=== PATIENT | female | born 1940 | race Caucasian/White ===

== ENCOUNTER 2016-12-15 09:40 | Emergency (ER) | payer MEDICARE ==
[2016-12-15 09:58] VITALS: BP 147/62
--- NOTE | 2016-12-15 10:50 | EDM.PDOC ---
ED HPI GENERAL MEDICAL PROBLEM - General Chief Complaint: Gastrointestinal Problem Stated Complaint: INFLAMMATION OF COLON Time Seen by Provider: 12/15/16 10:11 Source of Information: Reports: Patient History Limitations: Reports: No Limitations - History of Present Illness INITIAL COMMENTS - FREE TEXT/NARRATIVE: Kallie presents today with complaints of watery diarrhea for 3 weeks without improvement. She states she telephoned her primary Dr. Mckeon and was instructed to report to ER for evaluation. Kallie reports watery diarrhea, minimal cramp-like abdominal pain daily. She reports 3 or more stools a day. She denies fever, chills, nausea, vomiting or pain with urination. Onset Date: 11/23/16 Duration: Week(s): Quality: Reports: Other (Cramping pain prior to and during diarrhea stools. ) Severity: Moderate Improves with: Reports: None Worsens with: Reports: Eating Other Treatments DEMONSTRATOR SALES: She has tried to eat more fiber in her diet, statesit makes it worse Feet Pain Score (Numeric/FACES): 2 - Related Data Allergies Allergy/AdvReac Type Severity Reaction Status Date / Time polyethylene glycol 3350 Allergy Diarrhea Verified 12/15/16 09:58 [From Miralax] Sulfa (Sulfonamide Allergy Blisters Verified 12/15/16 09:58 Antibiotics) Home Meds: Home Meds Ascorbic Acid [Vitamin C] 1,000 mg PO DAILY 03/13/13 [History] Atenolol [Tenormin] 50 mg PO DAILY 03/13/13 [History] Cholecalciferol (Vitamin D3) [Vitamin D3] 5,000 unit PO DAILY 03/13/13 [History] Levothyroxine [Sythroid] 100 mcg PO DAILY 03/13/13 [History] Selenium 200 mcg PO DAILY 03/13/13 [History] Latanoprost [Latanoprost] 1 drop OP BEDTIME 12/15/16 [History] Lutein/Minerals/Vit A,C & E [Ocuvite] 1 tab PO DAILY 12/15/16 [History] Red Yeast Rice 600 mg PO DAILY 12/15/16 [History] Timolol [Betimol 0.5% Ophth Soln] 1 drop OP DAILY 12/15/16 [History] Past Medical History HEENT History: Reports: Cataract, Sinusitis Cardiovascular History: Reports: Arrhythmia, High Cholesterol Gastrointestinal History: Reports: Chronic Diarrhea, Colon Polyp, Inflammatory Bowel Disease, Irritable Bowel Syndrome Genitourinary History: Reports: UTI, Recurrent [employer]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: Musculoskeletal History: Reports: Arthritis, Fracture, Neck Pain, Chronic, Osteoarthritis Endocrine/Metabolic History: Reports: Hypothyroidism, Obesity/BMI 30+ - Infectious Disease History Infectious Disease History: Reports: Chicken Pox, Measles, Mumps, Shingles - Past Surgical History HEENT Surgical History: Reports: Cataract Surgery GI Surgical History: Reports: Colonoscopy Female Surgical History: Reports: Hysterectomy, Salpingo-Oophorectomy Musculoskeletal Surgical History: Reports: Arthroscopic Knee Social & Family History - Tobacco Use Smoking Status *Q: Never Smoker Second Hand Smoke Exposure: No - Caffeine Use Caffeine Use: Reports: Coffee - Alcohol Use Days Per Week of Alcohol Use: 0 - Recreational Drug Use Recreational Drug Use: No ED ROS GENERAL - Review of Systems Review Of Systems: See Below Constitutional: Reports: Weight Gain. Denies: Fever, Chills, Malaise, Weakness HEENT: Reports: No Symptoms Respiratory: Denies: Shortness of Breath, Wheezing, Cough, Sputum, Hemoptysis Cardiovascular: Denies: Chest Pain, Blood Pressure Problem, Dyspnea on Exertion , Edema, Lightheadedness, Palpitations, Syncope Endocrine: Reports: No Symptoms GI/Abdominal: Reports: Abdominal Pain, Diarrhea, Distension, Flatus, Nausea, Stool Incontinence. Denies: Black Stool, Bloody Stool, Constipation, Decreased Appetite, Difficulty Swallowing, Hematemesis, Hematochezia, Mucous in Stool, Vomiting : Denies: Discharge, Dysuria, Flank Pain, Frequency, Hematuria, Incontinence, Pain, Urgency, Urinary Retention Musculoskeletal: Reports: No Symptoms Skin: Reports: Dryness. Denies: Cyanosis, Jaundice, Pallor, Diaphoresis, Bruising, Pruritis, Rash, Erythema, Wound, Lesions Neurological: Denies: Confusion, Dizziness, Headache, Numbness, Syncope, Tingling, Weakness Psychiatric: Reports: No Symptoms Hematologic/Lymphatic: Reports: No Symptoms Immunologic: Reports: No Symptoms ED EXAM, GI/ABD - Physical Exam Exam: See Below Text/Narrative:: Kallie is an alert, oriented and pleasant 76 year old female presenting with complaints of watery diarrhea for 3 weeks, abdominal cramping immediately prior to and during defecation with increase of fiber intake. She reports history of irritable bowel and strong family history of colon cancer. Exam Limited By: No Limitations General Appearance: Alert, WD/WN, No Apparent Distress Eyes: Bilateral: Normal Appearance, EOMI Ears: Normal External Exam, Normal Canal, Hearing Grossly Normal, Normal TMs Nose: Normal Inspection, Normal Mucosa, No Blood Throat/Mouth: Normal Inspection, Normal Lips, Normal Teeth, Normal Gums, Normal Oropharynx, Normal Voice, No Airway Compromise Head: Atraumatic, Normocephalic Neck: Normal Inspection, Supple, Non-Tender, Full Range of Motion Respiratory/Chest: No Respiratory Distress, Lungs Clear, Normal Breath Sounds, No Accessory Muscle Use, Chest Non-Tender Cardiovascular: Normal Peripheral Pulses, Regular Rate, Rhythm, No Edema, No Gallop, No Murmur, No Rub GI/Abdominal Exam: Soft, No Organomegaly, Distended, Tender, Abnormal Bowel Sounds, Other (hyperactive bowel sounds. ). No: Guarding, Rigid, Rebound, Mass Rectal (Female) Exam: Normal Exam, Normal Rectal Tone, Heme - Stool, Hemorrhoids. No: Black Stool, Bloody Stool Back Exam: Normal Inspection, Full Range of Motion. No: CVA Tenderness (R), CVA Tenderness (L) Extremities: Normal Inspection, Normal Range of Motion, Non-Tender, No Pedal Edema, Normal Capillary Refill Neurological: Alert, Oriented, CN II-XII Intact, Normal Cognition, No Motor/ Sensory Deficits Psychiatric: Normal Affect, Normal Mood Skin Exam: Warm, Dry, Intact, Normal Color, No Rash Lymphatic: No Adenopathy Course - Vital Signs Last Recorded V/S: Last Vital Signs Temp 36.1 C 12/15/16 09:55 Pulse 67 12/15/16 09:55 Resp 18 12/15/16 09:55 BP 147/62 H 12/15/16 09:55 Pulse Ox 95 12/15/16 09:55 - Orders/Labs/Meds Orders: Active Orders 24 hr Category Date Time Status Abdomen Pelvis w Cont [CT] Stat Exams 12/15/16 11:15 Taken Labs: Laboratory Tests 12/15/16 12/15/16 12/15/16 Range/Units 10:53 10:53 10:53 WBC 5.3 (4.5-11.0) K/uL RBC 4.48 (3.30-5.50) M/uL Hgb 13.4 (12.0-15.0) g/dL Hct 38.7 (36.0-48.0) % MCV 86 (80-98) fL MCH 30 (27-31) pg MCHC 35 (32-36) % Plt Count 172 (150-400) K/uL Neut % (Auto) 59 (36-66) % Lymph % (Auto) 30 (24-44) % [place] % (Auto) 9 H (2-6) % Eos % (Auto) 2 (2-4) % Baso % (Auto) 1 (0-1) % ESR 17 (0-25) mm/hr Sodium 140 (140-148) mmol/L Potassium 3.9 (3.6-5.2) mmol/L Chloride 107 (100-108) mmol/L Carbon Dioxide 27 (21-32) mmol/L Anion Gap 6.0 (5.0-14.0) mmol/L BUN 14 (7-18) mg/dL Creatinine 0.9 (0.6-1.0) mg/dL Est Cr Clr Drug Dosing 50.02 mL/min Estimated GFR (MDRD) > 60 (>60) Glucose 99 (74-106) mg/dL Calcium 8.5 (8.5-10.1) mg/dL Magnesium 1.8 (1.8-2.4) mg/dL Total Bilirubin 0.5 (0.2-1.0) mg/dL AST 16 (15-37) U/L ALT 19 (12-78) U/L Alkaline Phosphatase 54 (46-116) U/L C-Reactive Protein (0.0-0.3) mg/dL Total Protein 7.1 (6.4-8.2) g/dL Albumin 3.3 L (3.4-5.0) g/dL Globulin 3.8 H (2.3-3.5) g/dL Albumin/Globulin Ratio 0.9 L (1.2-2.2) 12/15/16 Range/Units 10:53 WBC (4.5-11.0) K/uL RBC (3.30-5.50) M/uL Hgb (12.0-15.0) g/dL Hct (36.0-48.0) % MCV (80-98) fL MCH (27-31) pg MCHC (32-36) % Plt Count (150-400) K/uL Neut % (Auto) (36-66) % Lymph % (Auto) (24-44) % [place] % (Auto) (2-6) % Eos % (Auto) (2-4) % Baso % (Auto) (0-1) % ESR (0-25) mm/hr Sodium (140-148) mmol/L Potassium (3.6-5.2) mmol/L Chloride (100-108) mmol/L Carbon Dioxide (21-32) mmol/L Anion Gap (5.0-14.0) mmol/L BUN (7-18) mg/dL Creatinine (0.6-1.0) mg/dL Est Cr Clr Drug Dosing mL/min Estimated GFR (MDRD) (>60) Glucose (74-106) mg/dL Calcium (8.5-10.1) mg/dL Magnesium (1.8-2.4) mg/dL Total Bilirubin (0.2-1.0) mg/dL AST (15-37) U/L ALT (12-78) U/L Alkaline Phosphatase (46-116) U/L C-Reactive Protein 0.20 (0.0-0.3) mg/dL Total Protein (6.4-8.2) g/dL Albumin (3.4-5.0) g/dL Globulin (2.3-3.5) g/dL Albumin/Globulin Ratio (1.2-2.2) Occult stool negative Lab work reviewed Meds: Medications Discontinued Medications Generic Name Dose Route Start Last Admin Trade Name Freq PRN Reason Stop Dose Admin Sodium Chloride 81 mls @ 4.1 mls/sec 12/15/16 11:20 12/15/16 11:33 Normal Saline IV 12/15/16 11:21 4.1 mls/sec ASDIRECTED STA Administration Iopamidol 136 ml 12/15/16 11:20 12/15/16 11:32 Isovue-300 (61%) IV 12/15/16 11:21 150 ml . DIRECTED STA Administration - Radiology Interpretation CT Results Date: 12/15/16 (Colon is decompressed from the hepatic flexure distally. There is suggestion of focal transition point to decompressed distal colon with subtle shouldering at the hepatic flexure. While this may be transient, neoplasm or stricture could result in this appearance. Recommend colonoscopy if not recently performed. ) - Re-Assessments/Exams Free Text/Narrative Re-Assessment/Exam: 12/15/16 12:35 Dr. Singh notified of CT findings. Patient will be scheduled to complete colonoscopy as soon as possible this week through outpatient. Patient allergic to miralax. Patient notified of lab work, CT results. She is in agreement with plan. Free Text/Narrative Re-Assessment/Exam: 12/15/16 12:43 Colonoscopy scheduled with outpatient surgery. Patient report allergy to miralax. Given instruction to use magnesium citrate Bowel prep instructions for colonoscopy: Buy: 1. 3 bottles of magnesium citrate (clear or green only) 2. 3 Dulcolax pills 3. 1 Water based fleets enema The day before your colonoscopy: 1. Drink one bottle of magnesium citrate at 1:00pm, 2:00pm and 6:00pm 2. Take the 3 dulcolax pills after finishing the last bottle of magnesium citrate. Drink 8 oz of water every 2 hours you are awake until midnight. If you are not cleaned out after you finish the above, give yourself a water- based fleets enema. Departure - Departure Time of Disposition: 12:37 Disposition: Home, Self-Care 01 Condition: Fair Clinical Impression: Abnormal CT of the abdomen, Diarrhea - Discharge Information Instructions: Low-Fiber Diet, Diarrhea, Adult, [id number] Referrals: Reynold Mckeon MD [Primary Care Provider] - Forms: ED Department Discharge Additional Instructions: Diarrhea Abnormal CT scan of abdomen and pelvis with recommended colonoscopy. Report to outpatient therapy after they have contacted you for a colonoscopy. Dr. Singh has ordered a diet as tolerated for you. Eat soft foods without a lot of fiber, eat no added fiber. Keep yourself hydrated by drinking plenty of water. Return at any time for worsening, fever, chills, abdominal pain or concerns. Bowel prep instructions for colonoscopy: Buy: 1. 3 bottles of magnesium citrate (clear or green only) 2. 3 Dulcolax pills 3. 1 Water based fleets enema The day before your colonoscopy: 1. Drink one bottle of magnesium citrate at 1:00pm, 2:00pm and 6:00pm 2. Take the 3 dulcolax pills after finishing the last bottle of magnesium citrate. Drink 8 oz of water every 2 hours you are awake until midnight. If you are not cleaned out after you finish the above, give yourself a water- based fleets enema. Colonoscopy on Saturday12/17/16. Please arrive at 7:00 am at [facility]. - My Orders Last 24 Hours: My Active Orders 12/15/16 11:15 Abdomen Pelvis w Cont [CT] Stat - Assessment/Plan Last 24 Hours: My Active Orders 12/15/16 11:15 Abdomen Pelvis w Cont [CT] Stat Assessment:: Abnormal CT of abdomen Diarrhea Possible distal colon stricture, transient decompression or neoplasm. Plan: Diarrhea Abnormal CT scan of abdomen and pelvis with recommended colonoscopy. Report to outpatient therapy as directed for a colonoscopy. Follow instructions for colonoscopy prep and procedure. Dr. Singh has ordered a diet as tolerated. Eat soft foods without a lot of fiber, eat no added fiber. Patient advised to keep hydrated by drinking plenty of water. She is advised to return at any time for worsening, fever, chills, abdominal pain or concerns.
[2016-12-15] MEDS ORDERED: Iopamidol 612 MG/ML 150 ML Bottle IV STA (11:20)
== END 2016-12-15 13:11 | disposition home or self-care (01) ==
LOC: JP.ED 09:40
DX: R19.7 Diarrhea, unspecified (principal); R93.5 Abnormal findings on diagnostic imaging of other abdominal regions, including retroperitoneum; E03.9 Hypothyroidism, unspecified; E66.9 Obesity, unspecified; E78.00 Pure hypercholesterolemia, unspecified; Z88.2 Allergy status to sulfonamides; Z88.8 Allergy status to other drugs, medicaments and biological substances; Z79.899 Other long term (current) drug therapy; Z87.440 Personal history of urinary (tract) infections; Z98.49 Cataract extraction status, unspecified eye; Z90.710 Acquired absence of both cervix and uterus
CPT/HCPCS: 36415; 74177; 80053; 82272; 83735; 85025; 85651; 86140; 99284; J7030

== ENCOUNTER 2016-12-17 06:52 | Day surgery (SDC) | payer MEDICARE ==
[2016-12-17] MEDS ORDERED: fentaNYL 100 MCG/2 ML SDV ONE (07:05)
[2016-12-17] MEDS ORDERED: Propofol 200 MG/20 ML SDV ONE ×2 (07:05→08:07)
[2016-12-17] MEDS ORDERED: Sodium Chloride 0.9% 1,000 ML IV SCH (07:38)
[2016-12-17] MEDS ORDERED: Ondansetron 4 MG/2 ML SDV ONE (08:10)
[2016-12-17 10:08] VITALS: BP 125/74
--- NOTE | 2017-02-01 14:58 | OR ---
DATE OF PROCEDURE: 12/17/2016 PROCEDURE: 1. EGD. 2. Colonoscopy. FINDINGS: 1. Very mild inflammation of the duodenum, biopsied using cold biopsy forceps. 2. Gastric polyp, approximately 5 mm, completely removed using cold biopsy forceps. 3. Biopsy of the cecum due to mild inflammation. 4. Sigmoid colon biopsy, for possible irritable or inflammatory bowel disease. 5. Biopsy of the rectum, mild inflammation, biopsied using cold biopsy forceps. PREOPERATIVE DIAGNOSIS: Diarrhea and colonic narrowing concerning for irritable/inflammatory bowel disease. POSTOPERATIVE DIAGNOSIS: Diarrhea and colonic narrowing concerning for irritable/inflammatory bowel disease. RISKS: Risks, benefits, alternatives, limitations including, but not limited to infection, bleeding, and perforation explained to the patient. PROCEDURE IN DETAIL: The patient was placed in left lateral decubitus position. The EGD scope was introduced, advanced atraumatically to the second part of the duodenum. There was mild inflammation and this was biopsied using cold biopsy forceps and concerns for inflammatory or irritable bowel disease. The scope was brought back into the stomach. No hiatal hernia. The patient had a small gastric polyp which was completely removed. The esophagus was normal. Digital rectal exam was performed, which showed mild external hemorrhoids. Scope was introduced and advanced atraumatically to the ileocecal valve. The scope was brought back due to the inflammatory or irritable bowel disease concerns, the aforementioned biopsies were performed. No abnormalities on retroflex, except for small external hemorrhoids. The patient tolerated the procedure well. Perry Singh MD /[id number]
== END 2016-12-17 10:05 | disposition home or self-care (01) ==
LOC: JP.SDS 06:52
PROVIDERS: ATTEND Surgery
DX: K31.7 Polyp of stomach and duodenum (principal); K52.9 Noninfective gastroenteritis and colitis, unspecified; K64.4 Residual hemorrhoidal skin tags; Z88.2 Allergy status to sulfonamides; Z88.8 Allergy status to other drugs, medicaments and biological substances; E78.00 Pure hypercholesterolemia, unspecified; E66.9 Obesity, unspecified; Z90.710 Acquired absence of both cervix and uterus; Z98.890 Other specified postprocedural states; E03.9 Hypothyroidism, unspecified; Z68.30 Body mass index [BMI] 30.0-30.9, adult
CPT/HCPCS: 43239; 45380; 88305; 88342; J2405; J2704; J3010; J7040

== ENCOUNTER 2018-08-05 21:24 | Emergency (ER) | payer MEDICARE ==
--- NOTE | 2018-08-05 23:04 | EDM.PDOC ---
ED HPI GENERAL MEDICAL PROBLEM - General Chief Complaint: Gastrointestinal Problem Stated Complaint: CHEST DISCOMFORT Time Seen by Provider: 08/05/18 23:01 Source of Information: Reports: Patient History Limitations: Reports: No Limitations - History of Present Illness INITIAL COMMENTS - FREE TEXT/NARRATIVE: pt has had several episodes of severe heartburn. This always happens in the pm. Tonight she was at the movie and it got very severe. Onset: Gradual, Other (pt has had several episodes of heart burn. ) Duration: Hour(s): Location: Reports: Chest, Abdomen Associated Symptoms: Reports: Chest Pain, Shortness of Breath - Related Data Allergies Allergy/AdvReac Type Severity Reaction Status Date / Time polyethylene glycol 3350 Allergy Diarrhea Verified 08/05/18 21:57 [From Miralax] Sulfa (Sulfonamide Allergy Blisters Verified 08/05/18 21:57 Antibiotics) Home Meds: Home Meds Atenolol [Tenormin] 50 mg PO DAILY 03/13/13 [History] Cholecalciferol (Vitamin D3) [Vitamin D3] 5,000 unit PO DAILY 03/13/13 [History] Levothyroxine [Sythroid] 100 mcg PO DAILY 03/13/13 [History] Latanoprost 1 drop OP BEDTIME 12/15/16 [History] Timolol [Betimol 0.5% Ophth Soln] 1 drop OP DAILY 12/15/16 [History] Past Medical History HEENT History: Reports: Cataract, Sinusitis Cardiovascular History: Reports: Arrhythmia, High Cholesterol Gastrointestinal History: Reports: Chronic Diarrhea, Colon Polyp, Inflammatory Bowel Disease, Irritable Bowel Syndrome Genitourinary History: Reports: UTI, Recurrent 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: Musculoskeletal History: Reports: Arthritis, Fracture, Neck Pain, Chronic, Osteoarthritis Endocrine/Metabolic History: Reports: Hypothyroidism, Obesity/BMI 30+ - Infectious Disease History Infectious Disease History: Reports: Chicken Pox, Measles, Mumps, Rubella, Shingles - Past Surgical History HEENT Surgical History: Reports: Cataract Surgery Cardiovascular Surgical History: Reports: None GI Surgical History: Reports: Colonoscopy Female Surgical History: Reports: Hysterectomy, Salpingo-Oophorectomy Endocrine Surgical History: Reports: None Musculoskeletal Surgical History: Reports: Arthroscopic Knee Social & Family History - Family History Family Medical History: Noncontributory - Tobacco Use Smoking Status *Q: Never Smoker Second Hand Smoke Exposure: No - Caffeine Use Caffeine Use: Reports: Coffee - Recreational Drug Use Recreational Drug Use: No ED ROS GENERAL - Review of Systems Review Of Systems: See Below Constitutional: Reports: No Symptoms HEENT: Reports: No Symptoms Respiratory: Reports: Shortness of Breath, Other (pt feels like her exercise tolerance is down. ) Cardiovascular: Reports: Other (pt has had a sudden onset of heartburn which is completely new to her. ) Endocrine: Reports: No Symptoms GI/Abdominal: Reports: Other (heartburn. ) : Reports: No Symptoms Musculoskeletal: Reports: No Symptoms Skin: Reports: No Symptoms ED EXAM, GI/ABD - Physical Exam Exam: See Below Text/Narrative:: pt arrived with a history of several episodes of heartburn which is very new to her. She has just had a total knee done so she has been sitting alot more. Exam Limited By: No Limitations General Appearance: Alert, Anxious, Moderate Distress, Other (pt feels like the heartburn is severe when she has it. ) Ears: Normal TMs Nose: Normal Inspection Throat/Mouth: Normal Inspection Head: Atraumatic Neck: Normal Inspection Respiratory/Chest: Other (pt is getting alot more sob with activity. Her chest xray looks good. ) Cardiovascular: Regular Rate, Rhythm GI/Abdominal Exam: Soft, Other (mild epigastric tenderness. ) (Female) Exam: Deferred Rectal (Female) Exam: Deferred Back Exam: Normal Inspection Extremities: Normal Inspection Neurological: Alert, Oriented, Normal Cognition Course - Vital Signs Last Recorded V/S: Last Vital Signs Temp 37.1 C 08/05/18 22:02 Pulse 86 08/05/18 23:30 Resp 19 08/05/18 23:30 BP 150/88 H 08/05/18 23:30 Pulse Ox 95 08/05/18 23:30 - Orders/Labs/Meds Orders: Active Orders 24 hr Category Date Time Status EKG Documentation Completion [RC] ASDIRECTED Care 08/05/18 23:00 Active Chest 1V Frontal [CR] Stat Exams 08/05/18 23:04 Taken Pantoprazole [ProTONIX] Med 08/06/18 23:16 Once 40 mg PO DAILY ONE EKG 12 Lead [EK] Routine Ther 08/05/18 23:00 Ordered Medication Orders Pantoprazole Sodium (Protonix) 40 mg PO DAILY ONE Stop: 08/06/18 23:17 Last Admin: 08/05/18 23:40 Dose: 40 mg Labs: Laboratory Tests 08/05/18 08/05/18 08/05/18 Range/Units 23:10 23:10 23:10 WBC 4.7 (4.5-11.0) K/uL RBC 4.69 (3.30-5.50) M/uL Hgb 13.4 (12.0-15.0) g/dL Hct 40.8 (36.0-48.0) % MCV 87 (80-98) fL MCH 29 (27-31) pg MCHC 33 (32-36) % Plt Count 218 (150-400) K/uL Neut % (Auto) 76 H (36-66) % Lymph % (Auto) 20 L (24-44) % [place] % (Auto) 4 (2-6) % Eos % (Auto) 0 L (2-4) % Baso % (Auto) 0 (0-1) % Sodium 138 L (140-148) mmol/L Potassium 4.4 (3.6-5.2) mmol/L Chloride 102 (100-108) mmol/L Carbon Dioxide 25 (21-32) mmol/L Anion Gap 15.4 H (5.0-14.0) mmol/L BUN 13 (7-18) mg/dL Creatinine 0.9 (0.6-1.0) mg/dL Est Cr Clr Drug Dosing 49.29 mL/min Estimated GFR (MDRD) > 60 (>60) Glucose 170 H (74-106) mg/dL Calcium 9.5 (8.5-10.1) mg/dL Total Bilirubin 0.3 (0.2-1.0) mg/dL AST 16 (15-37) U/L ALT 18 (12-78) U/L Alkaline Phosphatase 72 (46-116) U/L Troponin I < 0.017 (0.000-0.056) ng/mL Total Protein 7.4 (6.4-8.2) g/dL Albumin 3.5 (3.4-5.0) g/dL Globulin 3.9 H (2.3-3.5) g/dL Albumin/Globulin Ratio 0.9 L (1.2-2.2) Meds: Medications Generic Name Dose Route Start Last Admin Trade Name Som PRN Reason Stop Dose Admin Pantoprazole Sodium 40 mg 08/06/18 23:16 08/05/18 23:40 Protonix PO 08/06/18 23:17 40 mg DAILY ONE Administration Discontinued Medications Generic Name Dose Route Start Last Admin Trade Name Som PRN Reason Stop Dose Admin Pantoprazole Sodium Confirm 08/05/18 23:38 08/05/18 23:41 Protonix Administered 08/05/18 23:39 Not Given Dose 40 mg .ROUTE .STK-MED ONE - Re-Assessments/Exams Free Text/Narrative Re-Assessment/Exam: 08/06/18 00:16 pt has a normal ekg and a normal trop. Her chest xray looks good. will have her return for a lexiscan. Departure - Departure Time of Disposition: 00:09 Disposition: Home, Self-Care 01 Condition: Fair Clinical Impression: Heartburn - Discharge Information Referrals: Reynold Mckeon MD [Primary Care Provider] - Forms: ED Department Discharge Care Plan Goals: new onset of heartburn--protonix 20m g daily, rtc for a lexiscan this week. follow up appt with Dr Mckeon.-saturday or Saturday. - My Orders Last 24 Hours: My Active Orders 08/05/18 23:00 EKG Documentation Completion [RC] ASDIRECTED EKG 12 Lead [EK] Routine 08/05/18 23:04 Chest 1V Frontal [CR] Stat 08/06/18 23:16 Pantoprazole [ProTONIX] 40 mg PO DAILY ONE - Assessment/Plan Last 24 Hours: My Active Orders 08/05/18 23:00 EKG Documentation Completion [RC] ASDIRECTED EKG 12 Lead [EK] Routine 08/05/18 23:04 Chest 1V Frontal [CR] Stat 08/06/18 23:16 Pantoprazole [ProTONIX] 40 mg PO DAILY ONE
[2018-08-05] MEDS ORDERED: Pantoprazole 40 MG Tab.CR ONE (23:38)
[2018-08-05 23:44] VITALS: BP 150/88
[2018-08-06] MEDS ORDERED: Pantoprazole 40 MG Tab.CR PO ONE (23:16)
--- NOTE | 2018-08-07 09:58 | CRLCR ---
Final Report: INDICATION: Shortness of breath. COMPARISON: None available. FINDINGS: An erect single view of the chest was obtained at 06/18/2021 hours. The lungs are clear. No focal or diffuse infiltrates are present. The heart is normal in size. The mediastinum is normal in appearance. The osseous structures are normal in appearance for the patient`s age. IMPRESSION: Normal chest single view. Dictated by Kishor Maradiaga MD @ Aug 05 2018 11:51PM Signed by: Kishor Maradiaga MD @08/05/2018 11:52:43 PM (Electronic Signature) MTDD
== END 2018-08-06 00:21 | disposition home or self-care (01) ==
LOC: JP.ED 21:24
DX: R12 Heartburn (principal); E78.00 Pure hypercholesterolemia, unspecified; E03.9 Hypothyroidism, unspecified; Z79.899 Other long term (current) drug therapy; Z88.2 Allergy status to sulfonamides; Z88.8 Allergy status to other drugs, medicaments and biological substances
CPT/HCPCS: 36415; 71045; 80053; 84484; 85025; 93005; 99284; A9270

== ENCOUNTER → 2018-09-17 | Outpatient (CLI) | payer MEDICARE ==
--- NOTE | 2018-09-18 09:41 | CRLMR ---
INDICATION: Left joint pain. COMPARISON: None. TECHNIQUE: Axial and coronal PD and PD fat sat and sagittal T1 and STIR sequences left ankle. FINDINGS: Tendons: Periarticular tendons are normal in appearance for age with no subluxation, significant tearing, mucoid change or tenosynovitis. - Ligaments: Intact syndesmotic ligaments. Intact lateral ankle ligaments. Normal medial deltoid ligaments. No sinus tarsi syndrome. - Ankle joint: Relatively uniform grade 2 thinning throughout the joint with slightly irregular grade 3 to grade 4 thinning at the medial shoulder of the talar dome without secondary degenerative finding. Physiologic fluid in the joint without synovitis or loose body. - Bones and soft tissues: Plantar fascia thickness and signal are normal. Moderately severe joint space narrowing and undulating subarticular sclerosis and cysts with subchondral edema at the talonavicular joint. Dorsal chronic spurring of the talar head. More mild degenerative arthrosis appearance through the will subtalar joint, calcaneocuboid joint and throughout the tarsal metatarsal midfoot. No acute fracture or significant bone lesion. No soft tissue mass or fluid collection. 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 Mild tibiotalar osteoarthritis. 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 Dictated by Dakotah Hinojosa MD @ Sep 18 2018 9:36AM Signed by Dr. Dakotah Hinojsoa @ Sep 18 2018 9:41AM
--- NOTE | 2018-09-21 12:33 | CRLMR ---
INDICATION: 78-year-old female. Left sciatica and lateral knee numbness. TECHNIQUE: Sagittal and axial T1, sagittal and axial T2 and sagittal STIR images. FINDINGS: Alignment of the lumbar spine is within normal limits. No compression fracture. No cortical bone destruction or paraspinal mass. Multilevel spondylosis. Incidental osseous hemangioma at the L1 level has doubtful clinical significance. Distal spinal cord appears normal and terminates normally at the mid L2 level. Mild diffuse annular bulging at T11-12 and T12-L1 without stenosis of the spinal canal or neural foramen. At L1-2 degenerative disc desiccation and minor diffuse annular bulge without stenosis of the spinal canal or neural foramen. At L2-3 degenerative disc desiccation but no disc herniation or stenosis the spinal canal or neural foramen. At L3-4 degenerative disc desiccation there is mild annular bulge with a small left foraminal disc protrusion contacts but does not compress the exiting left L3 nerve root no central stenosis. At L4-5 degenerative disk desiccation and circumferential disk bulge with mild to moderate bilateral facet arthropathy thickening of ligamentum flavum and mild central canal stenosis. The lateral recesses are adequately patent there is mild bilateral neural foraminal narrowing. At L5-S1 degenerative disk desiccation. Mild circumferential disk bulge osteophyte complex without stenosis of the spinal canal or neural foramen. IMPRESSION: 1. Mild multilevel spondylosis in the lumbar and lower thoracic spine, as described in detail. 2. At the L4-5 level mild central canal spinal stenosis and mild to moderate left neural foraminal narrowing due to the diffuse disc bulge and bilateral facet arthropathy. 3. At L3-4 there is a small left foraminal disc protrusion contacts but does not frankly compresses the exiting left L3 nerve root. Dictated by Harmeet Elkins MD @ Sep 21 2018 12:22PM Signed by Dr. Harmeet Elkins @ Sep 21 2018 12:32PM
== END ==
LOC: JP.MRI 13:15
PROVIDERS: ATTEND Orthopaedic Surgery
DX: M25.572 Pain in left ankle and joints of left foot (principal); G89.29 Other chronic pain; M54.32 Sciatica, left side; M47.26 Other spondylosis with radiculopathy, lumbar region; M51.36 Other intervertebral disc degeneration, lumbar region; M48.061 Spinal stenosis, lumbar region without neurogenic claudication; M51.26 Other intervertebral disc displacement, lumbar region; M19.072 Primary osteoarthritis, left ankle and foot
CPT/HCPCS: 72148; 73721-LT

== ENCOUNTER 2018-10-31 14:58 | Observation (INO) | payer MEDICARE ==
[2018-10-31] MEDS ORDERED: Ketorolac 30 MG/ML SDV IVPUSH ONE (16:08)
--- NOTE | 2018-10-31 16:12 | EDM.PDOC ---
ED HPI GENERAL MEDICAL PROBLEM - General Chief Complaint: Fever Stated Complaint: FELL IN PAIN OVER BODY/ FEVER Time Seen by Provider: 10/31/18 16:00 Source of Information: Reports: Patient History Limitations: Reports: No Limitations - History of Present Illness INITIAL COMMENTS - FREE TEXT/NARRATIVE: 78-year-old female who has had a febrile illness for the past week, was seen in clinic and presumed tickborne and started on doxycycline 4 days ago. She feels she is getting worse, persistent headache, general myalgias and weakness. Last night she slid out of bed and was too weak to get back up in bed, slept on the floor. No bruising, no joint swelling, denies shortness of breath or chest pain. Decreased appetite but no nausea or vomiting, she does have some loose stool and is developed some incontinence because of the weakness. Has not noticed any rashes and has no history of tick bites that she knows of. Onset: Gradual Duration: Week(s): (One week) Location: Reports: Generalized Associated Symptoms: Reports: Fever/Chills, Headaches, Loss of Appetite, Malaise , Weakness. Denies: Chest Pain, Cough, Diaphoresis, Rash Generalized Pain Score (Numeric/FACES): 10 - Related Data Allergies Allergy/AdvReac Type Severity Reaction Status Date / Time Sulfa (Sulfonamide Allergy Blisters Verified 10/31/18 15:31 Antibiotics) polyethylene glycol 3350 AdvReac Diarrhea Verified 11/01/18 09:49 [From Miralax] Home Meds: Home Meds Atenolol [Tenormin] 50 mg PO BID 03/13/13 [History] Cholecalciferol (Vitamin D3) [Vitamin D3] 5,000 unit PO DAILY 03/13/13 [History] Levothyroxine [Sythroid] 100 mcg PO DAILY 03/13/13 [History] Timolol [Betimol 0.5% Ophth Soln] 1 drop OP DAILY 12/15/16 [History] L.acidoph,Paracasei, B.lactis [Probiotic] 1 tab PO DAILY 09/29/18 [History] Vitamin E 1,000 unit PO DAILY 09/29/18 [History] Past Medical History HEENT History: Reports: Cataract, Sinusitis Cardiovascular History: Reports: Arrhythmia, High Cholesterol Gastrointestinal History: Reports: Chronic Diarrhea, Colon Polyp, Inflammatory Bowel Disease, Irritable Bowel Syndrome Genitourinary History: Reports: UTI, Recurrent [employer] History: Reports: Musculoskeletal History: Reports: Arthritis, Fracture, Neck Pain, Chronic, Osteoarthritis Endocrine/Metabolic History: Reports: Hypothyroidism, Obesity/BMI 30+ - Infectious Disease History Infectious Disease History: Reports: Chicken Pox, Measles, Mumps - Past Surgical History HEENT Surgical History: Reports: Cataract Surgery Cardiovascular Surgical History: Reports: None GI Surgical History: Reports: Colonoscopy Female Surgical History: Reports: Hysterectomy, Salpingo-Oophorectomy Endocrine Surgical History: Reports: None Musculoskeletal Surgical History: Reports: Arthroscopic Knee, Other (See Below) Other Musculoskeletal Surgeries/Procedures:: l knee replacement MAY 05 2018 Social & Family History - Family History Family Medical History: Noncontributory - Tobacco Use Smoking Status *Q: Never Smoker Second Hand Smoke Exposure: No - Caffeine Use Caffeine Use: Reports: Coffee - Recreational Drug Use Recreational Drug Use: No ED ROS GENERAL - Review of Systems Review Of Systems: See Below Constitutional: Reports: Fever, Chills, Malaise, Decreased Appetite HEENT: Reports: Other (Periorbital pain) Respiratory: Denies: Shortness of Breath, Cough Cardiovascular: Denies: Chest Pain GI/Abdominal: Reports: Nausea. Denies: Abdominal Pain, Vomiting : Reports: Incontinence. Denies: Dysuria, Frequency Musculoskeletal: Reports: Joint Pain, Muscle Pain, Muscle Stiffness. Denies: Joint Swelling Skin: Reports: No Symptoms Neurological: Reports: Headache, Weakness Psychiatric: Reports: No Symptoms ED EXAM, GENERAL - Physical Exam Exam: See Below Exam Limited By: No Limitations General Appearance: Alert, No Apparent Distress Eye Exam: Bilateral Eye: Normal Inspection Throat/Mouth: Normal Inspection Head: Atraumatic Neck: Supple, Non-Tender Respiratory/Chest: No Respiratory Distress, Lungs Clear Cardiovascular: Regular Rate, Rhythm. No: Tachycardia GI/Abdominal: Soft, Non-Tender Extremities: Normal Inspection. No: Pedal Edema Neurological: Alert, Oriented, No Motor/Sensory Deficits Psychiatric: Flat Affect Skin Exam: Warm, Dry Course - Vital Signs Last Recorded V/S: Last Vital Signs Temp 99.2 F 11/01/18 17:32 Pulse 70 11/01/18 15:00 Resp 18 11/01/18 15:00 BP 131/48 L 11/01/18 15:00 Pulse Ox 97 11/01/18 15:00 - Orders/Labs/Meds Orders: Active Orders 24 hr Category Date Time Status CULTURE URINE [RM] Stat Lab 10/31/18 17:19 Received Medication Orders Acetaminophen (Tylenol) 650 mg PO Q4H PRN PRN Reason: Pain (Mild 1-3)/fever Last Admin: 11/01/18 16:35 Dose: 650 mg Admin: 11/01/18 07:42 Dose: 650 mg Atenolol (Tenormin) 50 mg PO BID [facility] Last Admin: 11/01/18 08:11 Dose: 50 mg Doxycycline Hyclate 100 mg/ (Sodium Chloride) 100 mls @ 100 mls/hr IV Q12H [facility] Last Admin: 11/01/18 10:03 Dose: 100 mls/hr Sodium Chloride (Normal Saline) 1,000 mls @ 50 mls/hr IV ASDIRECTED [facility] Last Admin: 11/01/18 15:47 Dose: 50 mls/hr Ibuprofen (Motrin) 600 mg PO Q6H PRN PRN Reason: Pain/Fever Last Admin: 11/01/18 15:33 Dose: 600 mg Admin: 10/31/18 21:04 Dose: 600 mg Lactobacillus Rhamnosus (Culturelle) 1 cap PO BID [facility] Last Admin: 11/01/18 08:11 Dose: 1 cap Admin: 10/31/18 21:00 Dose: 1 cap Levothyroxine Sodium (Synthroid) 100 mcg PO ACBREAKFAST [facility] Last Admin: 11/01/18 08:11 Dose: 100 mcg Magnesium Hydroxide (Milk Of Magnesia) 30 ml PO Q12H PRN PRN Reason: Constipation Non-Formulary Medication (Timolol [Betimol 0.5% Ophth Soln]) 1 drop OP DAILY [facility] Ondansetron HCl (Zofran Odt) 4 mg PO Q6H PRN PRN Reason: Nausea able to take PO Ondansetron HCl (Zofran) 4 mg IV Q6H PRN PRN Reason: Nausea/Vomiting Senna/Docusate Sodium (Senna Plus) 1 tab PO BID PRN PRN Reason: Constipation Labs: Laboratory Tests 10/31/18 10/31/18 10/31/18 Range/Units 16:20 16:20 16:20 WBC 3.2 L (4.5-11.0) K/uL RBC 4.54 (3.30-5.50) M/uL Hgb 13.0 (12.0-15.0) g/dL Hct 38.1 (36.0-48.0) % MCV 84 (80-98) fL MCH 29 (27-31) pg MCHC 34 (32-36) % Plt Count 93 L (150-400) K/uL Neut % (Auto) 81 H (36-66) % Lymph % (Auto) 11 L (24-44) % [place] % (Auto) 7 H (2-6) % Eos % (Auto) 0 L (2-4) % Baso % (Auto) 1 (0-1) % ESR 26 H (0-25) mm/hr Sodium 131 L (140-148) mmol/L Potassium 3.5 L (3.6-5.2) mmol/L Chloride 94 L (100-108) mmol/L Carbon Dioxide 28 (21-32) mmol/L Anion Gap 12.5 (5.0-14.0) mmol/L BUN 12 (7-18) mg/dL Creatinine 1.1 H (0.6-1.0) mg/dL Est Cr Clr Drug Dosing 38.82 mL/min Estimated GFR (MDRD) 48 L (>60) Glucose 117 H (74-106) mg/dL Lactic Acid (0.4-2.0) mmol/L Calcium 8.7 (8.5-10.1) mg/dL Total Bilirubin 0.9 D (0.2-1.0) mg/dL AST 44 H D (15-37) U/L ALT 24 (12-78) U/L Alkaline Phosphatase 49 (46-116) U/L Creatine Kinase (26-192) U/L Troponin I (0.000-0.056) ng/mL C-Reactive Protein (0.0-0.3) mg/dL Total Protein 6.6 (6.4-8.2) g/dL Albumin 3.0 L (3.4-5.0) g/dL Globulin 3.6 H (2.3-3.5) g/dL Albumin/Globulin Ratio 0.8 L (1.2-2.2) Urine Color Urine Appearance Urine pH (4.5-8.0) Ur Specific [place] (1.008-1.030) Urine Protein (NEGATIVE) mg/dL Urine Glucose (UA) (NEGATIVE) mg/dL Urine Ketones (NEGATIVE) mg/dL Urine Occult Blood (NEGATIVE) Urine Nitrite (NEGATIVE) Urine Bilirubin (NEGATIVE) Urine Urobilinogen (NORMAL) mg/dL Ur Leukocyte Esterase (NEGATIVE) Urine RBC (0-5) Urine WBC (0-5) Ur Epithelial Cells Amorphous Sediment Urine Bacteria Urine Mucus 10/31/18 10/31/18 10/31/18 Range/Units 16:20 16:48 16:52 WBC (4.5-11.0) K/uL RBC (3.30-5.50) M/uL Hgb (12.0-15.0) g/dL Hct (36.0-48.0) % MCV (80-98) fL MCH (27-31) pg MCHC (32-36) % Plt Count (150-400) K/uL Neut % (Auto) (36-66) % Lymph % (Auto) (24-44) % [place] % (Auto) (2-6) % Eos % (Auto) (2-4) % Baso % (Auto) (0-1) % ESR (0-25) mm/hr Sodium (140-148) mmol/L Potassium (3.6-5.2) mmol/L Chloride (100-108) mmol/L Carbon Dioxide (21-32) mmol/L Anion Gap (5.0-14.0) mmol/L BUN (7-18) mg/dL Creatinine (0.6-1.0) mg/dL Est Cr Clr Drug Dosing mL/min Estimated GFR (MDRD) (>60) Glucose (74-106) mg/dL Lactic Acid 1.6 (0.4-2.0) mmol/L Calcium (8.5-10.1) mg/dL Total Bilirubin (0.2-1.0) mg/dL AST (15-37) U/L ALT (12-78) U/L Alkaline Phosphatase (46-116) U/L Creatine Kinase 609 H (26-192) U/L Troponin I < 0.017 (0.000-0.056) ng/mL C-Reactive Protein 8.00 H (0.0-0.3) mg/dL Total Protein (6.4-8.2) g/dL Albumin (3.4-5.0) g/dL Globulin (2.3-3.5) g/dL Albumin/Globulin Ratio (1.2-2.2) Urine Color Yellow Urine Appearance Slightly cloudy Urine pH 5.0 (4.5-8.0) Ur Specific [place] 1.025 (1.008-1.030) Urine Protein 30 H (NEGATIVE) mg/dL Urine Glucose (UA) Normal (NEGATIVE) mg/dL Urine Ketones 50 H (NEGATIVE) mg/dL Urine Occult Blood Large (NEGATIVE) Urine Nitrite Negative (NEGATIVE) Urine Bilirubin Negative (NEGATIVE) Urine Urobilinogen Normal (NORMAL) mg/dL Ur Leukocyte Esterase Negative (NEGATIVE) Urine RBC 10-20 H (0-5) Urine WBC 5-10 H (0-5) Ur Epithelial Cells Moderate Amorphous Sediment Moderate Urine Bacteria Moderate Urine Mucus Many Meds: Medications Generic Name Dose Route Start Last Admin Trade Name Freq PRN Reason Stop Dose Admin Acetaminophen 650 mg 10/31/18 19:25 11/01/18 16:35 Tylenol PO 650 mg Q4H PRN Administration Pain (Mild 1-3)/fever Atenolol 50 mg 11/01/18 09:00 11/01/18 08:11 Tenormin PO 50 mg BID [facility] Administration Doxycycline Hyclate 100 mg/ 100 mls @ 100 mls/hr 11/01/18 10:00 11/01/18 10: 03 Sodium Chloride IV 100 mls/hr Q12H [facility] Administration Sodium Chloride 1,000 mls @ 50 mls/hr 11/01/18 11:00 11/01/18 15:47 Normal Saline IV 50 mls/hr ASDIRECTED [facility] Administration Ibuprofen 600 mg 10/31/18 19:25 11/01/18 15:33 Motrin PO 600 mg Q6H PRN Administration Pain/Fever Lactobacillus Rhamnosus 1 cap 10/31/18 21:00 11/01/18 08:11 Culturelle PO 1 cap BID [facility] Administration Levothyroxine Sodium 100 mcg 11/01/18 07:30 11/01/18 08:11 Synthroid PO 100 mcg ACBREAKFAST [facility] Administration Magnesium Hydroxide 30 ml 10/31/18 19:25 Milk Of Magnesia PO Q12H PRN Constipation Non-Formulary Medication 1 drop 11/01/18 09:00 Timolol [Betimol 0.5% Ophth Soln] OP DAILY [facility] Ondansetron HCl 4 mg 10/31/18 19:25 Zofran Odt PO Q6H PRN Nausea able to take PO Ondansetron HCl 4 mg 10/31/18 19:25 Zofran IV Q6H PRN Nausea/Vomiting Senna/Docusate Sodium 1 tab 10/31/18 19:25 Senna Plus PO BID PRN Constipation Discontinued Medications Generic Name Dose Route Start Last Admin Trade Name Freq PRN Reason Stop Dose Admin Atenolol 50 mg 10/31/18 21:00 10/31/18 21:03 Tenormin PO 50 mg BID [facility] Administration Sodium Chloride 1,000 mls @ 1,000 mls/hr 10/31/18 16:15 10/31/18 16:50 Normal Saline IV 1,000 mls/hr ASDIRECTED [facility] Administration Doxycycline Hyclate 100 mg/ 100 mls @ 100 mls/hr 10/31/18 21:00 10/31/18 22: 46 Sodium Chloride IV 100 mls/hr Q12H [facility] Administration Potassium Chloride 20 meq/ 112 mls @ 50 mls/hr 10/31/18 19:25 10/31/18 23:49 Lidocaine HCl 2 ml/ Sodium IV 10/31/18 23:24 50 mls/hr Chloride Q2H [facility] Administration Sodium Chloride 1,000 mls @ 125 mls/hr 10/31/18 19:25 11/01/18 04:21 Normal Saline IV 125 mls/hr ASDIRECTED [facility] Administration Potassium Chloride Confirm 10/31/18 19:47 10/31/18 19:58 Kcl 20 Meq In Water 100 Ml Administered 10/31/18 19:48 Not Given Dose 200 mls @ as directed .ROUTE .STK-MED ONE Ketorolac Tromethamine 15 mg 10/31/18 16:08 10/31/18 16:49 Toradol IVPUSH 10/31/18 16:09 15 mg ONETIME ONE Administration - Re-Assessments/Exams Free Text/Narrative Re-Assessment/Exam: 10/31/18 16:12 We will obtain a UA by mini catheter, an IV was started and she'll be given 1 L of normal saline and 15 mg of IV Toradol. CBC CMP CRP sedimentation rate were drawn. Also a CK to rule out rhabdomyolysis. 10/31/18 17:35 UA revealed moderate bacteria, 10-20 WBCs and some RBCs as well. CRP was 8.0, AST mildly elevated white count is normal low at 3200. Platelets are also low. Pattern is fairly typical for tick born disease such as anaplasmosis. Dr. Christie of the hospitalist service will evaluate the patient for likely admission. CK was 608. Sedimentation rate only 26. Departure - Departure Time of Disposition: 18:40 Disposition: Refer to Observation Clinical Impression: Polyarthritis of multiple sites, Dehydration Fever Qualifiers: Fever type: due to other condition Qualified Code(s): R50.81 - Fever presenting with conditions classified elsewhere - Discharge Information
[2018-10-31] MEDS ORDERED: Sodium Chloride 0.9% 1,000 ML IV SCH (16:15)
--- NOTE | 2018-10-31 17:49 | PCM.HP ---
H&P History of Present Illness - General Date of Service: 10/31/18 Admit Problem/Dx: Admission Diagnosis/Problem Admission Diagnosis/Problem Lyme disease Source of Information: Patient, Provider History Limitations: Reports: No Limitations - History of Present Illness Initial Comments - Free Text/Narative: CC: I'm so cold HPI: Kallie presents to the emergency room today with several days of fever as high as 103 as well as significant episodes of shaking chills. She reports both diffuse myalgias and arthralgias. She says that she hurts over her entire body. She has developed progressive weakness and was so weak last night that she slid out of bed and was unable to get off the floor. She did spend the night on the floor before her son helped her up this morning. She has not had much of an appetite but has done okay with fluids. She has had a mild cough but is getting over a cold from 2 weeks ago. No significant sputum and she does not feel short of breath other than maybe mildly. No complaints of nausea or abdominal pain but she did have an episode of diarrhea today. No obvious sick contacts or travel. She was seen in the clinic 4 days ago and was thought to have anaplasmosis so she was started on doxycycline but has not felt much better despite the antibiotics. Workup in the emergency room did raise concern for tickborne disease with leukopenia, thrombocytopenia, mild elevation of AST and significantly elevated CRP. Examination revealed multiple joints seem to be inflamed. urine mildly suggestive of infection. Creatine kinase mildly elevated.She will be admitted for management of suspected anaplasmosis and Lyme disease co-Infection. Generalized Pain Score (Numeric/FACES): 10 - Related Data Allergies/Adverse Reactions: Allergies Allergy/AdvReac Type Severity Reaction Status Date / Time polyethylene glycol 3350 Allergy Diarrhea Verified 10/31/18 15:31 [From Miralax] Sulfa (Sulfonamide Allergy Blisters Verified 10/31/18 15:31 Antibiotics) Home Medications: Home Meds Atenolol [Tenormin] 50 mg PO BID 03/13/13 [History] Cholecalciferol (Vitamin D3) [Vitamin D3] 5,000 unit PO DAILY 03/13/13 [History] Levothyroxine [Sythroid] 100 mcg PO DAILY 03/13/13 [History] Timolol [Betimol 0.5% Oph Soln] 1 drop OP DAILY 12/15/16 [History] L.acidoph,Paracasei, B.lactis [Probiotic] 1 tab PO DAILY 09/29/18 [History] Vitamin E 1,000 unit PO DAILY 09/29/18 [History] Past Medical History HEENT History: Reports: Cataract, Sinusitis Cardiovascular History: Reports: Arrhythmia, High Cholesterol Gastrointestinal History: Reports: Chronic Diarrhea, Colon Polyp, Inflammatory Bowel Disease, Irritable Bowel Syndrome Genitourinary History: Reports: UTI, Recurrent [employer] History: Reports: Musculoskeletal History: Reports: Arthritis, Fracture, Neck Pain, Chronic, Osteoarthritis Endocrine/Metabolic History: Reports: Hypothyroidism, Obesity/BMI 30+ - Infectious Disease History Infectious Disease History: Reports: Chicken Pox, Measles, Mumps - Past Surgical History HEENT Surgical History: Reports: Cataract Surgery Cardiovascular Surgical History: Reports: None GI Surgical History: Reports: Colonoscopy Female Surgical History: Reports: Hysterectomy, Salpingo-Oophorectomy Endocrine Surgical History: Reports: None Musculoskeletal Surgical History: Reports: Arthroscopic Knee, Other (See Below) Other Musculoskeletal Surgeries/Procedures:: l knee replacement MAY 05 2018 Social & Family History - Family History Family Medical History: Noncontributory - Tobacco Use Smoking Status *Q: Never Smoker Second Hand Smoke Exposure: No - Caffeine Use Caffeine Use: Reports: Coffee - Alcohol Use Alcohol Use History: No - Recreational Drug Use Recreational Drug Use: No H&P Review of Systems - Review of Systems: Review Of Systems: See Below Free Text/Narrative: A complete 12 point review of systems was obtained. Pertinent positives and negatives are noted in the history of present illness. All other systems were reviewed and were negative except as noted. Exam - Exam Exam: See Below - Vital Signs Vital Signs: Last Vital Signs Temp 37.9 C 10/31/18 15:37 Pulse 91 10/31/18 15:37 Resp 18 10/31/18 15:37 BP 115/65 10/31/18 15:37 Pulse Ox 94 L 10/31/18 15:37 Weight: 90.718 kg - Exam Quality Assessment: No: Supplemental Oxygen General: Alert, Oriented, Cooperative. No: Mild Distress HEENT: Conjunctiva Clear, Pupils Equal. No: Mucosa Moist & [place] (dry), Scleral Icterus Neck: Supple, Trachea Midline. No: Lymphadenopathy Lungs: Clear to Auscultation, Normal Respiratory Effort Cardiovascular: Regular Rate, Regular Rhythm GI/Abdominal Exam: Normal Bowel Sounds, Soft, Non-Tender, No Distention Back Exam: Normal Inspection, Full Range of Motion Extremities: No Pedal Edema, Increased Warmth (both knee, both wrists and both shoulders). No: Joint Swelling Peripheral Pulses: 2+: Dorsalis Pedis (L), Dorsalis Pedis (R) Skin: Warm, Dry. No: Rash, Petechia, Ecchymosis Neuro Extensive - Mental Status: Alert, Oriented x3, Nl Response to Commands Neuro Extensive - Motor, Sensory, Reflexes: No: Dysarthria, Abnormal Motor, Tremor Psychiatric: Alert, Normal Affect - Patient Data Lab Results Last 24 hrs: Laboratory Results - last 24 hr 10/31/18 10/31/18 10/31/18 Range/Units 16:20 16:20 16:20 WBC 3.2 L (4.5-11.0) K/uL RBC 4.54 (3.30-5.50) M/uL Hgb 13.0 (12.0-15.0) g/dL Hct 38.1 (36.0-48.0) % MCV 84 (80-98) fL MCH 29 (27-31) pg MCHC 34 (32-36) % Plt Count 93 L (150-400) K/uL Neut % (Auto) 81 H (36-66) % Lymph % (Auto) 11 L (24-44) % [place] % (Auto) 7 H (2-6) % Eos % (Auto) 0 L (2-4) % Baso % (Auto) 1 (0-1) % ESR 26 H (0-25) mm/hr Sodium 131 L (140-148) mmol/L Potassium 3.5 L (3.6-5.2) mmol/L Chloride 94 L (100-108) mmol/L Carbon Dioxide 28 (21-32) mmol/L Anion Gap 12.5 (5.0-14.0) mmol/L BUN 12 (7-18) mg/dL Creatinine 1.1 H (0.6-1.0) mg/dL Est Cr Clr Drug Dosing 38.82 mL/min Estimated GFR (MDRD) 48 L (>60) Glucose 117 H (74-106) mg/dL Lactic Acid (0.4-2.0) mmol/L Calcium 8.7 (8.5-10.1) mg/dL Total Bilirubin 0.9 D (0.2-1.0) mg/dL AST 44 H D (15-37) U/L ALT 24 (12-78) U/L Alkaline Phosphatase 49 (46-116) U/L Creatine Kinase (26-192) U/L Troponin I (0.000-0.056) ng/mL C-Reactive Protein (0.0-0.3) mg/dL Total Protein 6.6 (6.4-8.2) g/dL Albumin 3.0 L (3.4-5.0) g/dL Globulin 3.6 H (2.3-3.5) g/dL Albumin/Globulin Ratio 0.8 L (1.2-2.2) Urine Color Urine Appearance Urine pH (4.5-8.0) Ur Specific [place] (1.008-1.030) Urine Protein (NEGATIVE) mg/dL Urine Glucose (UA) (NEGATIVE) mg/dL Urine Ketones (NEGATIVE) mg/dL Urine Occult Blood (NEGATIVE) Urine Nitrite (NEGATIVE) Urine Bilirubin (NEGATIVE) Urine Urobilinogen (NORMAL) mg/dL Ur Leukocyte Esterase (NEGATIVE) Urine RBC (0-5) Urine WBC (0-5) Ur Epithelial Cells Amorphous Sediment Urine Bacteria Urine Mucus 10/31/18 10/31/18 10/31/18 Range/Units 16:20 16:48 16:52 WBC (4.5-11.0) K/uL RBC (3.30-5.50) M/uL Hgb (12.0-15.0) g/dL Hct (36.0-48.0) % MCV (80-98) fL MCH (27-31) pg MCHC (32-36) % Plt Count (150-400) K/uL Neut % (Auto) (36-66) % Lymph % (Auto) (24-44) % [place] % (Auto) (2-6) % Eos % (Auto) (2-4) % Baso % (Auto) (0-1) % ESR (0-25) mm/hr Sodium (140-148) mmol/L Potassium (3.6-5.2) mmol/L Chloride (100-108) mmol/L Carbon Dioxide (21-32) mmol/L Anion Gap (5.0-14.0) mmol/L BUN (7-18) mg/dL Creatinine (0.6-1.0) mg/dL Est Cr Clr Drug Dosing mL/min Estimated GFR (MDRD) (>60) Glucose (74-106) mg/dL Lactic Acid 1.6 (0.4-2.0) mmol/L Calcium (8.5-10.1) mg/dL Total Bilirubin (0.2-1.0) mg/dL AST (15-37) U/L ALT (12-78) U/L Alkaline Phosphatase (46-116) U/L Creatine Kinase 609 H (26-192) U/L Troponin I < 0.017 (0.000-0.056) ng/mL C-Reactive Protein 8.00 H (0.0-0.3) mg/dL Total Protein (6.4-8.2) g/dL Albumin (3.4-5.0) g/dL Globulin (2.3-3.5) g/dL Albumin/Globulin Ratio (1.2-2.2) Urine Color Yellow Urine Appearance Slightly cloudy Urine pH 5.0 (4.5-8.0) Ur Specific [place] 1.025 (1.008-1.030) Urine Protein 30 H (NEGATIVE) mg/dL Urine Glucose (UA) Normal (NEGATIVE) mg/dL Urine Ketones 50 H (NEGATIVE) mg/dL Urine Occult Blood Large (NEGATIVE) Urine Nitrite Negative (NEGATIVE) Urine Bilirubin Negative (NEGATIVE) Urine Urobilinogen Normal (NORMAL) mg/dL Ur Leukocyte Esterase Negative (NEGATIVE) Urine RBC 10-20 H (0-5) Urine WBC 5-10 H (0-5) Ur Epithelial Cells Moderate Amorphous Sediment Moderate Urine Bacteria Moderate Urine Mucus Many Result Diagrams: 10/31/18 16:20 10/31/18 16:20 *Q Meaningful Use (ADM) - VTE *Q VTE Pharmacological Contraindications *Q: Thrombocytopenia - VTE Risk Assess *Q Each Risk Factor Represents 1 Point: Obesity ( BMI > 25 kg/m2) Total Score 1 Point Risk Factors: 1 Each Risk Factor Represents 2 Points: None Total Score 2 Point Risk Factors: 0 Each Risk Factor Represents 3 Points: Age 75 Years or Greater Total Score 3 Point Risk Factors: 3 Each Risk Factor Represents 5 Points: None Total Score 5 Point Risk Factors: 0 Venous Thromboembolism Risk Factor Score *Q: 4 - Problem List (1) Anaplasmosis SNOMED Code(s): 150655331 ICD Code: A77.49 - OTHER EHRLICHIOSIS Status: Suspected Current Visit: Yes (2) Acute Lyme disease SNOMED Code(s): 503203488 ICD Code: A69.20 - LYME DISEASE, UNSPECIFIED Status: Suspected Current Visit: Yes Problem List Initiated/Reviewed/Updated: Yes Orders Last 24hrs: Active Orders 24 hr Category Date Time Status Patient Status Manage Transfer [TRANSFER] Routine ADT 10/31/18 17:38 Ordered CULTURE URINE [RM] Stat Lab 10/31/18 17:19 Received Sodium Chloride 0.9% [Normal Saline] 1,000 ml Med 10/31/18 16:15 Active IV ASDIRECTED Resuscitation Status Routine Resus Stat 10/31/18 17:41 Ordered Medication Orders Sodium Chloride (Normal Saline) 1,000 mls @ 1,000 mls/hr IV ASDIRECTED [facility] Last Admin: 10/31/18 16:50 Dose: 1,000 mls/hr Assessment/Plan Comment:: ASSESSMENT AND PLAN - Acute anaplasmosis and Lyme disease, suspected - no obvious history of tick bite but history and laboratory testing very consistent with tickborne disease and probably co-infection. Lactic acid level is normal at this time but patient is very weak and not getting better despite outpatient antibiotics. Tick borne panel was collected in the clinic and sent several days ago but is still pending at the time of admission. -IV doxycycline -IV fluids -Pain control -Short burst of steroids Possible urinary tract infection - no symptoms and urine mildly suggestive of infection. We will set up a culture and consider adding additional antibiotics if there is a large quantity of a anterior growing. -Follow-up culture Hypokalemia - mild and will be replaced. -40 meq IVPB Maintenance issues - - DVT prophylaxis - mechanical with thrombocytopenia - GI prophylaxis - not indicated - Nutrition - regular diet - Cash catheter - not indicated CODE STATUS - full code Admission justification - patient will be referred to observation status for hydration and symptomatic management Disposition - I would anticipate discharge to home tomorrow Primary care physician - Emiliano Christie M.D.
[2018-10-31] MEDS ORDERED: Magnesium Hydroxide 400 MG/5 ML Susp 30 ML Cup PO PRN (19:25)
[2018-10-31] MEDS ORDERED: Ondansetron 4 MG/2 ML SDV IV PRN (19:25)
[2018-10-31] MEDS ORDERED: Ondansetron 4 MG Tab.DIS PO PRN (19:25)
[2018-10-31] MEDS: Sodium Chloride 0.9% 1,000 ML IV SCH (19:40)
[2018-10-31] MEDS: Potassium Chloride 20 MEQ, Lidocaine 1% 2 ML in Sodium Chloride 0.9% 100 ML IV SCH ×2 (19:59→23:49)
[2018-10-31] MEDS ORDERED: Atenolol 50 MG Tab PO SCH (21:00)
[2018-10-31] MEDS: Lactobacillus Rhamnosus GG (Probiotic) Cap PO SCH (21:00)
[2018-10-31] MEDS ORDERED: Atenolol 25 MG Tab PO SCH (21:00)
[2018-10-31] MEDS ORDERED: Doxycycline 100 MG in Sodium Chloride 0.9% 100 ML IV SCH (21:00)
[2018-10-31] MEDS: Ibuprofen 600 MG Tab PO PRN (21:04)
[2018-11-01] MEDS: Sodium Chloride 0.9% 1,000 ML IV SCH (04:21)
[2018-11-01] MEDS: Acetaminophen 325 MG Tab PO PRN ×2 (07:42→16:35)
[2018-11-01] MEDS: Lactobacillus Rhamnosus GG (Probiotic) Cap PO SCH ×2 (08:11→20:03)
[2018-11-01] MEDS: Levothyroxine 100 MCG Tab PO SCH (08:11)
[2018-11-01] MEDS: Atenolol 50 MG Tab PO SCH ×2 (08:11→20:03)
[2018-11-01] MEDS: Doxycycline 100 MG in Sodium Chloride 0.9% 100 ML IV SCH ×2 (10:03→21:15)
--- NOTE | 2018-11-01 10:49 | PCM.PN ---
- General Info Date of Service: 11/01/18 Subjective Update: No acute events overnight. Patient did have a fever. Joint and muscle aches are moderately improved but not resolved. Energy and appetite are slightly better. No complaints of cough or shortness of breath. No urinary symptoms. Cultures negative so far. Functional Status: Reports: Pain Controlled, Tolerating Diet - Review of Systems General: Reports: Fever HEENT: Reports: Headaches - Patient Data Vitals - Most Recent: Last Vital Signs Temp 36.3 C 11/01/18 10:27 Pulse 74 11/01/18 10:27 Resp 18 11/01/18 10:27 BP 92/51 L 11/01/18 10:27 Pulse Ox 98 11/01/18 10:27 Weight - Most Recent: 90.356 kg I&O - Last 24 Hours: Intake & Output 10/31/18 11/01/18 11/01/18 22:59 06:59 14:59 Intake Total 500 1144 580 Output Total 100 250 400 Balance 400 894 180 Lab Results Last 24 Hours: Laboratory Results - last 24 hr 10/31/18 10/31/18 10/31/18 Range/Units 16:20 16:20 16:20 WBC 3.2 L (4.5-11.0) K/uL RBC 4.54 (3.30-5.50) M/uL Hgb 13.0 (12.0-15.0) g/dL Hct 38.1 (36.0-48.0) % MCV 84 (80-98) fL MCH 29 (27-31) pg MCHC 34 (32-36) % Plt Count 93 L (150-400) K/uL Neut % (Auto) 81 H (36-66) % Lymph % (Auto) 11 L (24-44) % [place] % (Auto) 7 H (2-6) % Eos % (Auto) 0 L (2-4) % Baso % (Auto) 1 (0-1) % ESR 26 H (0-25) mm/hr Sodium 131 L (140-148) mmol/L Potassium 3.5 L (3.6-5.2) mmol/L Chloride 94 L (100-108) mmol/L Carbon Dioxide 28 (21-32) mmol/L Anion Gap 12.5 (5.0-14.0) mmol/L BUN 12 (7-18) mg/dL Creatinine 1.1 H (0.6-1.0) mg/dL Est Cr Clr Drug Dosing 38.82 mL/min Estimated GFR (MDRD) 48 L (>60) Glucose 117 H (74-106) mg/dL Lactic Acid (0.4-2.0) mmol/L Calcium 8.7 (8.5-10.1) mg/dL Total Bilirubin 0.9 D (0.2-1.0) mg/dL AST 44 H D (15-37) U/L ALT 24 (12-78) U/L Alkaline Phosphatase 49 (46-116) U/L Creatine Kinase (26-192) U/L Troponin I (0.000-0.056) ng/mL C-Reactive Protein (0.0-0.3) mg/dL Total Protein 6.6 (6.4-8.2) g/dL Albumin 3.0 L (3.4-5.0) g/dL Globulin 3.6 H (2.3-3.5) g/dL Albumin/Globulin Ratio 0.8 L (1.2-2.2) Urine Color Urine Appearance Urine pH (4.5-8.0) Ur Specific [place] (1.008-1.030) Urine Protein (NEGATIVE) mg/dL Urine Glucose (UA) (NEGATIVE) mg/dL Urine Ketones (NEGATIVE) mg/dL Urine Occult Blood (NEGATIVE) Urine Nitrite (NEGATIVE) Urine Bilirubin (NEGATIVE) Urine Urobilinogen (NORMAL) mg/dL Ur Leukocyte Esterase (NEGATIVE) Urine RBC (0-5) Urine WBC (0-5) Ur Epithelial Cells Amorphous Sediment Urine Bacteria Urine Mucus 10/31/18 10/31/18 10/31/18 Range/Units 16:20 16:48 16:52 WBC (4.5-11.0) K/uL RBC (3.30-5.50) M/uL Hgb (12.0-15.0) g/dL Hct (36.0-48.0) % MCV (80-98) fL MCH (27-31) pg MCHC (32-36) % Plt Count (150-400) K/uL Neut % (Auto) (36-66) % Lymph % (Auto) (24-44) % [place] % (Auto) (2-6) % Eos % (Auto) (2-4) % Baso % (Auto) (0-1) % ESR (0-25) mm/hr Sodium (140-148) mmol/L Potassium (3.6-5.2) mmol/L Chloride (100-108) mmol/L Carbon Dioxide (21-32) mmol/L Anion Gap (5.0-14.0) mmol/L BUN (7-18) mg/dL Creatinine (0.6-1.0) mg/dL Est Cr Clr Drug Dosing mL/min Estimated GFR (MDRD) (>60) Glucose (74-106) mg/dL Lactic Acid 1.6 (0.4-2.0) mmol/L Calcium (8.5-10.1) mg/dL Total Bilirubin (0.2-1.0) mg/dL AST (15-37) U/L ALT (12-78) U/L Alkaline Phosphatase (46-116) U/L Creatine Kinase 609 H (26-192) U/L Troponin I < 0.017 (0.000-0.056) ng/mL C-Reactive Protein 8.00 H (0.0-0.3) mg/dL Total Protein (6.4-8.2) g/dL Albumin (3.4-5.0) g/dL Globulin (2.3-3.5) g/dL Albumin/Globulin Ratio (1.2-2.2) Urine Color Yellow Urine Appearance Slightly cloudy Urine pH 5.0 (4.5-8.0) Ur Specific [place] 1.025 (1.008-1.030) Urine Protein 30 H (NEGATIVE) mg/dL Urine Glucose (UA) Normal (NEGATIVE) mg/dL Urine Ketones 50 H (NEGATIVE) mg/dL Urine Occult Blood Large (NEGATIVE) Urine Nitrite Negative (NEGATIVE) Urine Bilirubin Negative (NEGATIVE) Urine Urobilinogen Normal (NORMAL) mg/dL Ur Leukocyte Esterase Negative (NEGATIVE) Urine RBC 10-20 H (0-5) Urine WBC 5-10 H (0-5) Ur Epithelial Cells Moderate Amorphous Sediment Moderate Urine Bacteria Moderate Urine Mucus Many 11/01/18 11/01/18 Range/Units 05:30 05:30 WBC 1.9 L (4.5-11.0) K/uL RBC 4.23 (3.30-5.50) M/uL Hgb 12.1 (12.0-15.0) g/dL Hct 36.0 (36.0-48.0) % MCV 85 (80-98) fL MCH 29 (27-31) pg MCHC 34 (32-36) % Plt Count 72 L (150-400) K/uL Neut % (Auto) (36-66) % Lymph % (Auto) (24-44) % [place] % (Auto) (2-6) % Eos % (Auto) (2-4) % Baso % (Auto) (0-1) % ESR (0-25) mm/hr Sodium 135 L (140-148) mmol/L Potassium 3.6 (3.6-5.2) mmol/L Chloride 101 (100-108) mmol/L Carbon Dioxide 26 (21-32) mmol/L Anion Gap 11.6 (5.0-14.0) mmol/L BUN 12 (7-18) mg/dL Creatinine 0.9 (0.6-1.0) mg/dL Est Cr Clr Drug Dosing 47.45 mL/min Estimated GFR (MDRD) > 60 (>60) Glucose 101 (74-106) mg/dL Lactic Acid (0.4-2.0) mmol/L Calcium 8.3 L (8.5-10.1) mg/dL Total Bilirubin 0.8 (0.2-1.0) mg/dL AST 48 H (15-37) U/L ALT 23 (12-78) U/L Alkaline Phosphatase 47 (46-116) U/L Creatine Kinase 463 H (26-192) U/L Troponin I (0.000-0.056) ng/mL C-Reactive Protein (0.0-0.3) mg/dL Total Protein 5.7 L (6.4-8.2) g/dL Albumin 2.6 L (3.4-5.0) g/dL Globulin 3.1 (2.3-3.5) g/dL Albumin/Globulin Ratio 0.8 L (1.2-2.2) Urine Color Urine Appearance Urine pH (4.5-8.0) Ur Specific [place] (1.008-1.030) Urine Protein (NEGATIVE) mg/dL Urine Glucose (UA) (NEGATIVE) mg/dL Urine Ketones (NEGATIVE) mg/dL Urine Occult Blood (NEGATIVE) Urine Nitrite (NEGATIVE) Urine Bilirubin (NEGATIVE) Urine Urobilinogen (NORMAL) mg/dL Ur Leukocyte Esterase (NEGATIVE) Urine RBC (0-5) Urine WBC (0-5) Ur Epithelial Cells Amorphous Sediment Urine Bacteria Urine Mucus Med Orders - Current: Current Medications Acetaminophen (Tylenol) 650 mg PO Q4H PRN PRN Reason: Pain (Mild 1-3)/fever Last Admin: 11/01/18 07:42 Dose: 650 mg Atenolol (Tenormin) 50 mg PO BID [facility] [place] Last Admin: 11/01/18 08:11 Dose: 50 mg Doxycycline Hyclate 100 mg/ (Sodium Chloride) 100 mls @ 100 mls/hr IV Q12H [facility] [place] Last Admin: 11/01/18 10:03 Dose: 100 mls/hr Ibuprofen (Motrin) 600 mg PO Q6H PRN PRN Reason: Pain/Fever Last Admin: 10/31/18 21:04 Dose: 600 mg Lactobacillus Rhamnosus (Culturelle) 1 cap PO BID [facility] [place] Last Admin: 11/01/18 08:11 Dose: 1 cap Levothyroxine Sodium (Synthroid) 100 mcg PO ACBREAKFAST [facility] [place] Last Admin: 11/01/18 08:11 Dose: 100 mcg Magnesium Hydroxide (Milk Of Magnesia) 30 ml PO Q12H PRN PRN Reason: Constipation Non-Formulary Medication (Timolol [Betimol 0.5% Ophth Soln]) 1 drop OP DAILY [facility] [place] Ondansetron HCl (Zofran Odt) 4 mg PO Q6H PRN PRN Reason: Nausea able to take PO Ondansetron HCl (Zofran) 4 mg IV Q6H PRN PRN Reason: Nausea/Vomiting Senna/Docusate Sodium (Senna Plus) 1 tab PO BID PRN PRN Reason: Constipation Discontinued Medications Atenolol (Tenormin) 50 mg PO BID [facility] [place] Last Admin: 10/31/18 21:03 Dose: 50 mg Sodium Chloride (Normal Saline) 1,000 mls @ 1,000 mls/hr IV ASDIRECTED [facility] [place] Last Admin: 10/31/18 16:50 Dose: 1,000 mls/hr Doxycycline Hyclate 100 mg/ (Sodium Chloride) 100 mls @ 100 mls/hr IV Q12H [facility] [place] Last Admin: 10/31/18 22:46 Dose: 100 mls/hr Potassium Chloride 20 meq/Lidocaine HCl 2 ml/ Sodium Chloride 112 mls @ 50 mls/ hr IV Q2H [facility] [place] Stop: 10/31/18 23:24 Last Admin: 10/31/18 23:49 Dose: 50 mls/hr Sodium Chloride (Normal Saline) 1,000 mls @ 125 mls/hr IV ASDIRECTED [facility] [place] Last Admin: 11/01/18 04:21 Dose: 125 mls/hr Potassium Chloride (Kcl 20 Meq In Water 100 Ml) Confirm Administered Dose 200 mls @ as directed .ROUTE .STK-MED ONE Stop: 10/31/18 19:48 Last Admin: 10/31/18 19:58 Dose: Not Given Ketorolac Tromethamine (Toradol) 15 mg IVPUSH ONETIME ONE Stop: 10/31/18 16:09 Last Admin: 10/31/18 16:49 Dose: 15 mg - Exam Quality Assessment: No: Supplemental Oxygen General: Alert, Oriented, Cooperative, No Acute Distress Lungs: Normal Respiratory Effort Cardiovascular: Regular Rate, Regular Rhythm GI/Abdominal Exam: Soft, No Distention Extremities: No Pedal Edema Psy/Mental Status: Alert, Normal Affect - Problem List & Annotations (1) Anaplasmosis SNOMED Code(s): 317798507 Code(s): A77.49 - OTHER EHRLICHIOSIS Status: Suspected Current Visit: Yes (2) Acute Lyme disease SNOMED Code(s): 484831435 Code(s): A69.20 - LYME DISEASE, UNSPECIFIED Status: Suspected Current Visit: Yes - Problem List Review Problem List Initiated/Reviewed/Updated: Yes - My Orders Last 24 Hours: My Active Orders 10/31/18 17:19 CULTURE URINE [RM] Stat 10/31/18 17:41 Resuscitation Status Routine 10/31/18 19:25 Patient Status [ADT] Routine Intake and Output [RC] QSHIFT Notify Provider Vital Signs [RC] ASDIRECTED Oxygen Therapy [RC] .PRN Up With Assistance [RC] ASDIRECTED VTE/DVT Education [RC] Per Unit Routine Vital Signs [RC] Q4H Acetaminophen [Tylenol] 650 mg PO Q4H PRN Docusate Sodium/Sennosides [Senna Plus] 1 tab PO BID PRN Ibuprofen [Motrin] 600 mg PO Q6H PRN Magnesium Hydroxide [Milk of Magnesia] 30 ml PO Q12H PRN Ondansetron [Zofran ODT] 4 mg PO Q6H PRN Ondansetron [Zofran] 4 mg IV Q6H PRN VTE Pharmacological Contraindications [AST] Routine 10/31/18 21:00 Lactobacillus Rhamnosus GG [Culturelle] 1 cap PO BID 10/31/18 Dinner Regular Diet [DIET] 11/01/18 07:30 Levothyroxine [Synthroid] 100 mcg PO ACBREAKFAST 11/01/18 09:00 Atenolol [Tenormin] 50 mg PO BID Timolol [Betimol 0.5% Ophth Soln] 1 drop OP DAILY 11/01/18 10:00 Doxycycline [Vibramycin] 100 mg Sodium Chloride 0.9% [Normal Saline] 100 ml IV Q12H 11/01/18 10:47 Antiembolic Devices [RC] .Routine SCD [Sequential Compression Device] [OM.PC] Routine 11/01/18 11:00 Sodium Chloride 0.9% [Normal Saline] 1,000 ml IV ASDIRECTED 11/02/18 05:00 BASIC METABOLIC PANEL,BMP [CHEM] Timed CBC W/O DIFF,HEMOGRAM [HEME] Timed (1) - Plan Plan:: ASSESSMENT AND PLAN - Acute anaplasmosis and Lyme disease, suspected - no obvious history of tick bite but history and laboratory testing very consistent with tickborne disease and probably co-infection. White blood cell count and platelets are slightly lower today but clinically the patient is doing better. -IV doxycycline -Continue gentle IV fluids -Pain control Possible urinary tract infection - no symptoms and urine mildly suggestive of infection. Culture pending at this time but no urinary symptoms. -Follow-up culture Hypokalemia - improved with replacement. Maintenance issues - - DVT prophylaxis - mechanical with thrombocytopenia - GI prophylaxis - not indicated - Nutrition - regular diet - Cash catheter - not indicated CODE STATUS - full code Admission justification - patient will be referred to observation status for hydration and symptomatic management Disposition - I would anticipate discharge to home tomorrow Primary care physician - Emiliano Christie M.D.
[2018-11-01] MEDS ORDERED: Sodium Chloride 0.9% 1,000 ML IV SCH (11:00)
[2018-11-01] MEDS: Ibuprofen 600 MG Tab PO PRN (15:33)
[2018-11-01] MEDS ORDERED: TIMOLOL 0.5% OP SCH (18:15)
[2018-11-02] MEDS: Ibuprofen 600 MG Tab PO PRN (00:16)
[2018-11-02] MEDS ORDERED: Melatonin 3 MG Tab PO PRN (00:38)
[2018-11-02] MEDS: Acetaminophen 325 MG Tab PO PRN (01:33)
[2018-11-02] MEDS ORDERED: Calcium Carbonate 500 MG Tab.Chew PO PRN (06:47)
[2018-11-02] MEDS: Levothyroxine 100 MCG Tab PO SCH (07:55)
[2018-11-02] MEDS: Lactobacillus Rhamnosus GG (Probiotic) Cap PO SCH (08:00)
[2018-11-02] MEDS: Atenolol 50 MG Tab PO SCH (08:00)
[2018-11-02] MEDS ORDERED: Potassium Chloride 20 MEQ Tab.ER PO ONE (08:30)
[2018-11-02] MEDS ORDERED: TIMOLOL 0.5% EYEBOTH SCH (09:00)
[2018-11-02] MEDS ORDERED: OPTH EYEBOTH SCH (09:00)
--- NOTE | 2018-11-02 09:57 | PCM.DCSUM1 ---
Discharge Summary - Hospital Course Brief History: 78-year-old female with history of hypothyroidism and irritable bowel syndrome who presented with headache, fever, myalgias, arthralgias and weakness. 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 Diagnosis: Stroke: No - Discharge Data Discharge Date: 11/02/18 Discharge Disposition: Home, Self-Care 01 Condition: Good - Discharge Diagnosis/Problem(s) (1) Anaplasmosis SNOMED Code(s): 972459678 ICD Code: A77.49 - OTHER EHRLICHIOSIS Status: Suspected (2) Acute Lyme disease SNOMED Code(s): 170185413 ICD Code: A69.20 - LYME DISEASE, UNSPECIFIED Status: Suspected - Patient Summary/Data Hospital Course: Kallie and presented to the emergency room with headache, fevers, weakness as well as myalgias and arthralgias. Fevers have been as high as 103 at home. Workup in the emergency room revealed leukopenia and thrombo-cytopenia as well as mild elevation of AST and urine samples while be suggestive of infection. Based on symptoms and examination there was concern for both Lyme disease and anaplasmosis when combined with laboratory testing. History of labs very consistent with anaplasmosis. Examination revealed multiple joints that were inflamed and this raised concern for concomitant Lyme disease infection. She was started on IV doxycycline and received IV fluids overnight. She continued to have fevers overnight following admission. By the morning after she was feeling slightly better but still weak. We continued IV fluids and supplemented her potassium. IV antibiotics were continued. By the next morning, the morning of discharge, the patient was feeling a fair amount better. She reports that she still mildly weak but much better than the 2 previous days. Temperature curve has improved. She's been tolerating her diet. She has been up and walking around without much difficulty. White blood cell count has stabilized and platelet level is similar to yesterday. She feels well enough to go home at this time. We did review her blood testing from the clinic and her tickborne illness panel came back undetectable but I am highly suspicious of both of these infections and I'm going to treat her for a total of 3 weeks. - Patient Instructions Diet: Regular Diet as Tolerated Activity: As Tolerated Showering/Bathing: May Shower Notify Provider of: Fever, Increased Pain Other/Special Instructions: 1. You were in the hospital for management of what I suspect was a co-infection with both anaplasmosis and Lyme disease. The serologic testing was negative but I suspect you were early in the disease course and your body had not yet mounted an immune response. Your symptoms and laboratory studies as well as your physical exam fit perfectly with anaplasmosis and Lyme disease infections. I recommend ongoing antibiotic therapy with doxycycline. You should take 100 mg twice daily for 38 more doses ( 19 days). Your next dose is due tonight. Please take this antibiotic with food to avoid stomach upset. You may use acetaminophen 650 mg every 4 hours alternating with ibuprofen 600 mg every 6 hours to help with any aches, pains or fevers that you may have over the next few days. I would expect you to have low-grade temperature elevations for at least a couple more days. I also recommend that you take a probiotic capsule or eat yogurt with acidophilus while you are taking the antibiotics. 2. Continue your other home medications as previously prescribed. 3. Seek medical attention if you fever greater than 101, persistent vomiting, severe diarrhea or profound weakness. - Discharge Plan *PRESCRIPTION DRUG MONITORING PROGRAM REVIEWED*: Not Applicable *COPY OF PRESCRIPTION DRUG MONITORING REPORT IN PATIENT ALCIDES: Not Applicable Prescriptions/Med Rec: Doxycycline Hyclate 100 mg PO BID #38 capsule Home Medications: Home Meds Atenolol [Tenormin] 50 mg PO BID 03/13/13 [History] Cholecalciferol (Vitamin D3) [Vitamin D3] 5,000 unit PO DAILY 03/13/13 [History] Levothyroxine [Synthroid] 100 mcg PO DAILY 03/13/13 [History] Timolol [Betimol 0.5% Ophth Soln] 1 drop EYEBOTH DAILY 12/15/16 [History] L.acidoph,Paracasei, B.lactis [Probiotic] 1 tab PO DAILY 09/29/18 [History] Vitamin E 1,000 unit PO DAILY 09/29/18 [History] Doxycycline Hyclate 100 mg PO BID #38 capsule 11/02/18 [Rx] Oxygen Therapy Mode: Room Air Patient Handouts: Ehrlichiosis and Anaplasmosis, Thag-cm-Hots, Doxycycline tablets or capsules Referrals: Emiliano Reeder DIAGNOSTICS TECH [Primary Care Provider] - (Follow-up as needed if symptoms do not continue to get better or if they get worse) - Discharge Summary/Plan Comment DC Time >30 min.: No - Patient Data Vitals - Most Recent: Last Vital Signs Temp 36.1 C 11/02/18 07:57 Pulse 66 11/02/18 08:00 Resp 18 11/02/18 07:57 BP 95/57 L 11/02/18 08:00 Pulse Ox 95 11/02/18 07:57 Weight - Most Recent: 90.356 kg I&O - Last 24 hours: Intake & Output 11/01/18 11/02/18 11/02/18 22:59 06:59 14:59 Intake Total 1466 467 Balance 1466 467 Lab Results - Last 24 hrs: Laboratory Results - last 24 hr 11/02/18 11/02/18 Range/Units 05:32 05:32 WBC 2.7 L (4.5-11.0) K/uL RBC 3.92 (3.30-5.50) M/uL Hgb 11.3 L (12.0-15.0) g/dL Hct 33.0 L (36.0-48.0) % MCV 84 (80-98) fL MCH 29 (27-31) pg MCHC 34 (32-36) % Plt Count 65 L (150-400) K/uL Sodium 135 L (140-148) mmol/L Potassium 3.3 L (3.6-5.2) mmol/L Chloride 102 (100-108) mmol/L Carbon Dioxide 23 (21-32) mmol/L Anion Gap 13.3 (5.0-14.0) mmol/L BUN 10 (7-18) mg/dL Creatinine 0.8 (0.6-1.0) mg/dL Est Cr Clr Drug Dosing 53.38 mL/min Estimated GFR (MDRD) > 60 (>60) Glucose 110 H (74-106) mg/dL Calcium 8.5 (8.5-10.1) mg/dL TRACY Results - Last 24 hrs: Microbiology 10/31/18 17:19 Urine Culture - Preliminary Urine, Catheterized NO GROWTH AFTER 1 DAY Med Orders - Current: Current Medications Acetaminophen (Tylenol) 650 mg PO Q4H PRN PRN Reason: Pain (Mild 1-3)/fever Last Admin: 11/02/18 01:33 Dose: 650 mg Atenolol (Tenormin) 50 mg PO BID ON LICENSE OF [facility] Last Admin: 11/02/18 08:00 Dose: 50 mg Calcium Carbonate/Glycine (Tums) 1,000 mg PO Q2H PRN PRN Reason: Indigestion Last Admin: 11/02/18 07:46 Dose: 1,000 mg Doxycycline Hyclate 100 mg/ (Sodium Chloride) 100 mls @ 100 mls/hr IV Q12H ON LICENSE OF [facility] Last Admin: 11/01/18 21:15 Dose: 100 mls/hr Sodium Chloride (Normal Saline) 1,000 mls @ 50 mls/hr IV ASDIRECTED ON LICENSE OF [facility] Last Admin: 11/01/18 15:47 Dose: 50 mls/hr Ibuprofen (Motrin) 600 mg PO Q6H PRN PRN Reason: Pain/Fever Last Admin: 11/02/18 00:16 Dose: 600 mg Lactobacillus Rhamnosus (Culturelle) 1 cap PO BID ON LICENSE OF [facility] Last Admin: 11/02/18 08:00 Dose: 1 cap Levothyroxine Sodium (Synthroid) 100 mcg PO ACBREAKFAST ON LICENSE OF [facility] Last Admin: 11/02/18 07:55 Dose: 100 mcg Magnesium Hydroxide (Milk Of Magnesia) 30 ml PO Q12H PRN PRN Reason: Constipation Melatonin (Melatonin) 9 mg PO BEDTIME PRN PRN Reason: Insomnia Last Admin: 11/02/18 00:53 Dose: 9 mg Ondansetron HCl (Zofran Odt) 4 mg PO Q6H PRN PRN Reason: Nausea able to take PO Ondansetron HCl (Zofran) 4 mg IV Q6H PRN PRN Reason: Nausea/Vomiting Timolol 0.5% Opth (Soln (Ptom)) 0 each EYEBOTH DAILY ON LICENSE OF [facility] Last Admin: 11/02/18 09:02 Dose: 1 each Senna/Docusate Sodium (Senna Plus) 1 tab PO BID PRN PRN Reason: Constipation Discontinued Medications Atenolol (Tenormin) 50 mg PO BID ON LICENSE OF [facility] Last Admin: 10/31/18 21:03 Dose: 50 mg Sodium Chloride (Normal Saline) 1,000 mls @ 1,000 mls/hr IV ASDIRECTED ON LICENSE OF [facility] Last Admin: 10/31/18 16:50 Dose: 1,000 mls/hr Doxycycline Hyclate 100 mg/ (Sodium Chloride) 100 mls @ 100 mls/hr IV Q12H ON LICENSE OF [facility] Last Admin: 10/31/18 22:46 Dose: 100 mls/hr Potassium Chloride 20 meq/Lidocaine HCl 2 ml/ Sodium Chloride 112 mls @ 50 mls/ hr IV Q2H [facility]ATA Stop: 10/31/18 23:24 Last Admin: 10/31/18 23:49 Dose: 50 mls/hr Sodium Chloride (Normal Saline) 1,000 mls @ 125 mls/hr IV ASDIRECTED ON LICENSE OF [facility] Last Admin: 11/01/18 04:21 Dose: 125 mls/hr Potassium Chloride (Kcl 20 Meq In Water 100 Ml) Confirm Administered Dose 200 mls @ as directed .ROUTE .STK-MED ONE Stop: 10/31/18 19:48 Last Admin: 10/31/18 19:58 Dose: Not Given Ketorolac Tromethamine (Toradol) 15 mg IVPUSH ONETIME ONE Stop: 10/31/18 16:09 Last Admin: 10/31/18 16:49 Dose: 15 mg Timolol 0.5% Ophth (Soln Own Med) 0 drop OP DAILY ON LICENSE OF [facility] Last Admin: 11/01/18 20:04 Dose: 1 drop Potassium Chloride (Klor-Con M20) 40 meq PO ONETIME ONE Stop: 11/02/18 08:31 Last Admin: 11/02/18 09:01 Dose: 40 meq - Exam Quality Assessment: Denies: Supplemental Oxygen General: Reports: Alert, Oriented, Cooperative, No Acute Distress Lungs: Reports: Normal Respiratory Effort GI/Abdominal Exam: Soft, No Distention Extremities: No Pedal Edema Psy/Mental Status: Reports: Alert, Normal Affect *Q Meaningful Use (DIS) - VTE *Q VTE Pharmacological Contraindications *Q: Thrombocytopenia
[2018-11-02] MEDS: Doxycycline 100 MG in Sodium Chloride 0.9% 100 ML IV SCH (10:06)
[2018-11-02 10:43] VITALS: BP 103/51; PULSE 68
== END 2018-11-02 12:00 | disposition home or self-care (01) ==
LOC: JP.ED 14:58 → JP.MS 17:38
PROVIDERS: ADMIT Internal Medicine; ATTEND Internal Medicine
DX: A77.49 Other ehrlichiosis (principal); A69.20 Lyme disease, unspecified; E78.00 Pure hypercholesterolemia, unspecified; M19.90 Unspecified osteoarthritis, unspecified site; E03.9 Hypothyroidism, unspecified; E87.6 Hypokalemia; E66.9 Obesity, unspecified; Z68.32 Body mass index [BMI] 32.0-32.9, adult; Z88.8 Allergy status to other drugs, medicaments and biological substances; Z88.2 Allergy status to sulfonamides; Z79.899 Other long term (current) drug therapy; Z87.19 Personal history of other diseases of the digestive system
CPT/HCPCS: 36415; 80048; 80053; 81001; 82550; 83605; 84484; 85025; 85027; 85651; 86140; 87086; 96361; 96365; 96366; 96367; 96375; 96376; 99284; A9270; G0378; J1885; J2001; J3480; J3490; J7030; 96374; 99217; 99218; 99224

== ENCOUNTER 2018-11-07 16:27 | Observation (INO) | payer MEDICARE ==
[2018-11-07] MEDS ORDERED: Sodium Chloride 0.9% 10 ML Syringe FLUSH PRN (18:09)
[2018-11-07] MEDS ORDERED: Ondansetron 4 MG/2 ML SDV IV PRN (18:09)
[2018-11-07] MEDS ORDERED: Lactated Ringers 1,000 ML IV SCH ×2 (18:15)
[2018-11-07] MEDS ORDERED: Sodium Chloride 0.9% 10 ML Syringe FLUSH ONE (18:20)
--- NOTE | 2018-11-07 18:22 | PCM.HP ---
H&P History of Present Illness - General Date of Service: 11/07/18 Admit Problem/Dx: Admission Diagnosis/Problem Admission Diagnosis/Problem Weakness Source of Information: Patient, Provider, RN Notes Reviewed History Limitations: Reports: No Limitations - History of Present Illness Initial Comments - Free Text/Narative: 78-year-old female presents to clinic today primary care provider with a complaint of weakness. She was recently admitted to the hospital 7 days prior diagnosis of tickborne illness thought to be anaplasmosis treated with doxycycline plan for antibiotics of 21 days. She has been taking her antibiotics she admits to having fevers for 4 days or so that has resolved but her complaint at this time is difficulty breathing more short of breath and generalized muscle and joint aches. Evaluation by her primary care provider included blood work is CMP CBC which were unrevealing results within normal limits however chest x-ray shows bilateral pleural effusion of unclear etiology. Generalized Pain Score (Numeric/FACES): 4 - Related Data Allergies/Adverse Reactions: Allergies Allergy/AdvReac Type Severity Reaction Status Date / Time Sulfa (Sulfonamide Allergy Blisters Verified 10/31/18 15:31 Antibiotics) polyethylene glycol 3350 AdvReac Diarrhea Verified 11/01/18 09:49 [From Miralax] Home Medications: Home Meds Atenolol [Tenormin] 50 mg PO BID 03/13/13 [History] Cholecalciferol (Vitamin D3) [Vitamin D3] 5,000 unit PO DAILY 03/13/13 [History] Levothyroxine [Synthroid] 100 mcg PO DAILY 03/13/13 [History] Timolol [Betimol 0.5% Ophth Soln] 1 drop EYEBOTH DAILY 12/15/16 [History] L.acidoph,Paracasei, B.lactis [Probiotic] 1 tab PO DAILY 09/29/18 [History] Vitamin E 1,000 unit PO DAILY 09/29/18 [History] Doxycycline Hyclate 100 mg PO BID #38 capsule 11/02/18 [Rx] Acetaminophen/HYDROcodone [[place] 325-5 MG] 1 tab PO BID 11/07/18 [History] Ibuprofen 200 mg PO BID 11/07/18 [History] Past Medical History HEENT History: Reports: Cataract, Glaucoma, Sinusitis Cardiovascular History: Reports: Arrhythmia, High Cholesterol Respiratory History: Reports: SOB Gastrointestinal History: Reports: Chronic Diarrhea, Colon Polyp, Inflammatory Bowel Disease, Irritable Bowel Syndrome Genitourinary History: Reports: UTI, 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: Musculoskeletal History: Reports: Arthritis, Fracture, Neck Pain, Chronic, Osteoarthritis Endocrine/Metabolic History: Reports: Hypothyroidism, Obesity/BMI 30+ - Infectious Disease History Infectious Disease History: Reports: Chicken Pox, Measles, Mumps - Past Surgical History HEENT Surgical History: Reports: Cataract Surgery, Laser Surgery Cardiovascular Surgical History: Reports: None GI Surgical History: Reports: Colonoscopy Female Surgical History: Reports: Hysterectomy, Salpingo-Oophorectomy Endocrine Surgical History: Reports: None Musculoskeletal Surgical History: Reports: Arthroscopic Knee, Other (See Below) Other Musculoskeletal Surgeries/Procedures:: l knee replacement MAY 05 2018 Social & Family History - Family History Family Medical History: Noncontributory - Tobacco Use Smoking Status *Q: Never Smoker - Caffeine Use Caffeine Use: Reports: Coffee - Recreational Drug Use Recreational Drug Use: No H&P Review of Systems - Review of Systems: Review Of Systems: See Below General: Reports: Weakness, Fatigue HEENT: Reports: Sore Throat Pulmonary: Reports: Shortness of Breath, Cough. Denies: Wheezing, Sputum, Hemoptysis Cardiovascular: Reports: Dyspnea on Exertion Gastrointestinal: Reports: No Symptoms Genitourinary: Reports: No Symptoms Musculoskeletal: Reports: Muscle Pain, Muscle Stiffness Skin: Reports: No Symptoms Psychiatric: Reports: No Symptoms Neurological: Reports: No Symptoms Exam - Exam Exam: See Below - Vital Signs Vital Signs: Last Vital Signs Temp 98.1 F 11/07/18 16:51 Pulse 70 11/07/18 16:51 Resp 16 11/07/18 16:51 BP 132/70 11/07/18 16:51 Pulse Ox 98 11/07/18 16:51 - Exam Physical Exam Comments:: General: Female, not in any distress, alert and oriented x3 HEENT: head is atraumatic normocephalic, eyes pupils equal round reactive to light, sclera clear no conjunctivitis appreciated. Ears tympanic membranes clear and nicolas landmarks and light reflex are present bilaterally canals are clear. Nose no septal deviation, nares are clear, no blood present. Mouth mucosa is moist and pink no erythema or exudate noted in soft palate, tongue is midline uvula is midline, dentition is intact. Neck: Supple no thyromegaly no tracheal deviation. Nodes: Cervical nodes subclavicular nodes nontender no palpable lymphadenopathy noted. Lungs: Crackles in the bases bilaterally no use of his sister he must CV: Regular rate and rhythm S1 and S2 appreciated no murmurs rubs or gallops noted. Abdomen: Soft, nontender, no palpable masses or organomegaly appreciated, no distention no guarding bowel sounds are present, . Neuro: GCS 15 Extremities: No lower extremity edema appreciated, pedal pulse is +2. - Problem List (1) Pulmonary edema SNOMED Code(s): 86134640 ICD Code: J81.1 - CHRONIC PULMONARY EDEMA Status: Acute Priority: High Current Visit: Yes (2) Weakness SNOMED Code(s): 03100530 ICD Code: R53.1 - WEAKNESS Status: Acute Priority: High Current Visit: Yes (3) Anaplasmosis SNOMED Code(s): 876437634 ICD Code: A77.49 - OTHER EHRLICHIOSIS Status: Suspected Priority: Medium Current Visit: No Problem List Initiated/Reviewed/Updated: Yes Orders Last 24hrs: Active Orders 24 hr Category Date Time Status Patient Status [ADT] Routine ADT 11/07/18 18:09 Ordered Height and Weight [RC] DAILY Care 11/07/18 18:09 Ordered Intake and Output [RC] QSHIFT Care 11/07/18 18:11 Ordered Oxygen Therapy [RC] PRN Care 11/07/18 18:09 Ordered Oxygen Therapy [RC] PRN Care 11/07/18 18:10 Ordered Peripheral IV Care [RC] . DIRECTED Care 11/07/18 18:12 Ordered Up ad Lillian [RC] ASDIRECTED Care 11/07/18 18:09 Ordered VTE/DVT Education [RC] PER UNIT ROUTINE Care 11/07/18 18:10 Ordered VTE/DVT Education [RC] Per Unit Routine Care 11/07/18 18:09 Ordered Vital Signs [RC] Q4H Care 11/07/18 18:09 Ordered Regular Diet [DIET] Diet 11/07/18 Breakfast Ordered Ang Chest [CT] Urgent Exams 11/07/18 18:09 Ordered C-REACTIVE PROTEIN [CHEM] Routine Lab 11/07/18 18:09 Ordered CBC WITH AUTO DIFF [HEME] AM Lab 11/08/18 05:11 Ordered COMPREHENSIVE METABOLIC PN,CMP [CHEM] AM Lab 11/08/18 05:11 Ordered CREATINE KINASE,CK [CHEM] Routine Lab 11/07/18 18:09 Ordered INR,PT,PROTHROMBIN TIME [COAG] Routine Lab 11/07/18 18:09 Ordered PTT,PARTIAL THROMBOPLSTIN TIME [COAG] Routine Lab 11/07/18 18:09 Ordered Acetaminophen/HYDROcodone [[place] 325-5 MG] Med 11/07/18 21:00 Ordered 1 tab PO BID Atenolol [Tenormin] Med 11/07/18 21:00 Ordered 50 mg PO BID Cholecalciferol (Vitamin D3) [Vitamin D3] Med 11/08/18 09:00 Ordered 5,000 unit PO DAILY Doxycycline [Vibramycin] Med 11/07/18 21:00 Ordered 100 mg PO BID Enoxaparin [Lovenox] Med 11/08/18 09:00 Ordered 40 mg SUBCUT DAILY Ibuprofen [Ibuprofen] Med 11/07/18 21:00 Ordered 200 mg PO BID L.acidoph,Paracasei, B.lactis [Probiotic] Med 11/08/18 09:00 Ordered 1 tab PO DAILY Lactated Ringers @ 125 MLS/HR(1000ml) Med 11/07/18 18:15 Ordered Lactated Ringers [Ringers, Lactated] 1,000 ml IV ASDIRECTED Lactated Ringers [Ringers, Lactated] 1,000 ml Med 11/07/18 18:15 Ordered IV .BOLUS Levothyroxine [Synthroid] Med 11/08/18 09:00 Ordered 100 mcg PO DAILY Ondansetron [Zofran] Med 11/07/18 18:09 Ordered 4 mg IV Q4H PRN Sodium Chloride 0.9% [Saline Flush] Med 11/07/18 18:09 Ordered 10 ml FLUSH ASDIRECTED PRN Timolol [Betimol 0.5% Ophth Soln] Med 11/08/18 09:00 Ordered 1 drop EYEBOTH DAILY Vitamin E [Vitamin E] Med 11/08/18 09:00 Ordered 1,000 unit PO DAILY Peripheral IV Insertion Adult [OM.PC] Routine Oth 11/07/18 18:09 Ordered Resuscitation Status Routine Resus Stat 11/07/18 18:09 Ordered Medication Orders Hydrocodone Bitart/Acetaminophen ([place] 325-5 Mg) 1 tab PO BID [facility]ATA Atenolol (Tenormin) 50 mg PO BID CHATA Doxycycline Hyclate (Vibramycin) 100 mg PO BID [facility]ATA Enoxaparin Sodium (Lovenox) 40 mg SUBCUT DAILY [facility] Lactated Ringer's (Ringers, Lactated) 1,000 mls @ 125 mls/hr IV ASDIRECTED [facility] Lactated Ringer's (Ringers, Lactated) 1,000 mls @ 500 mls/hr IV .BOLUS [facility]ATA Levothyroxine Sodium (Synthroid) 100 mcg PO DAILY [facility] Non-Formulary Medication (Cholecalciferol (Vitamin D3) [Vitamin D3]) 5,000 unit PO DAILY [facility] Non-Formulary Medication (Ibuprofen [Ibuprofen]) 200 mg PO BID [facility] Non-Formulary Medication (L.Acidoph,Paracasei, B.Lactis [Probiotic]) 1 tab PO DAILY [facility] Non-Formulary Medication (Timolol [Betimol 0.5% Ophth Soln]) 1 drop EYEBOTH DAILY [facility] Non-Formulary Medication (Vitamin E [Vitamin E]) 1,000 unit PO DAILY [facility] Ondansetron HCl (Zofran) 4 mg IV Q4H PRN PRN Reason: Nausea/Vomiting Sodium Chloride (Saline Flush) 10 ml FLUSH ASDIRECTED PRN PRN Reason: Keep Vein Open Assessment/Plan Comment:: ASSESSMENT AND PLAN Bilateral pulmonary edema - unknown etiology at this time recent infection with probable anaplasmosis or tickborne illness causing dyspnea. 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 - Continue antibiotics doxycycline 100 mg by mouth twice a day total 21 days Hypothyroidism - Continue current medications MAINTENANCE ISSUES -DVT prophylaxis; Lovenox 40 mg subcutaneous daily -GI prophylaxis; not indicated at this time -Cash catheter; not indicated at this time -Nutrition; regular diet -Nicotine dependence; not required CODE STATUS-FULL CODE Admission justification - patient does not meet inpatient criteria at this time is admitted under observation until further evaluation can determine the etiology of the bilateral pulmonary embolism DISPOSITION - anticipate discharge to home after the hospital stay. PRIMARY CARE PROVIDER - Dr. Linda Taylor Officer
[2018-11-07] MEDS ORDERED: Sodium Chloride 0.9% 100 ML IV SCH (18:30)
[2018-11-07] MEDS ORDERED: Iopamidol 755 Mg/ML 100 ML Bottle IV SCH (18:30)
[2018-11-07] MEDS: Acetaminophen/HYDROcodone 325-5 MG Tab PO SCH ×3 (20:41→23:36)
[2018-11-07] MEDS ORDERED: ATENOLOL 50 MG PO SCH (21:00)
[2018-11-07] MEDS ORDERED: DOXYCYCLINE 100 MG PO SCH (21:00)
[2018-11-07] MEDS ORDERED: IBUPROFEN 200 MG PO SCH (21:00)
--- NOTE | 2018-11-07 22:58 | CRLCT ---
INDICATION: Pulmonary edema. Shortness of breath. COMPARISON: None available TECHNIQUE: CT examination of the chest was performed with the uneventful intravenous administration of 100 cc of Isovue 370 while 2 mm thick axial sections were obtained through the pulmonary arteries. Please note that all CT scans at this facility use dose modulation, iterative reconstruction, and/or weight-based dosing when appropriate to reduce radiation dose to as low as reasonably achievable. FINDINGS: : There is no sign of pulmonary embolism, with normal enhancement and branching of the pulmonary arteries. There are mild bilateral pleural effusions, right greater than left, with mild atelectasis of the posterior lung bases adjacent to the effusions. There is moderate patchy consolidation of the right superior perihilar lung extending into the anterior segment of the right upper lobe, findings of a right upper lobe pneumonia. There is also moderate ground-glass interstitial pulmonary edema with a mosaic distribution throughout the rest of the chest, consistent with pulmonary fibrosis. There is no sign of mediastinal or hilar mass or adenopathy. The heart and great vessels are normal in appearance. There is no sign of supraclavicular or axillary mass or adenopathy. The visualized superior liver has a calcified granuloma in the medial aspect of the posterior segment of the right lobe of the liver. The rest of the liver that is seen is normal in appearance. The visualized superior spleen, pancreas, kidneys, and adrenals are normal in appearance. The osseous structures are normal in appearance for the patient`s age. IMPRESSION: No sign of pulmonary embolism. Moderate patchy infiltrate in the right upper lobe consistent with pneumonia. Small bilateral pleural effusions, right greater than left. Moderate ground-glass pulmonary interstitial density with a mosaic distribution. Probably pulmonary fibrosis, but cannot entirely exclude pulmonary edema. Please note that all CT scans at this facility use dose modulation, iterative reconstruction, and/or weight-based dosing when appropriate to reduce radiation dose to as low as reasonably achievable. Dictated by Kishor Maradiaga MD @ Nov 07 2018 10:49PM Signed by Dr. Kishor Maradiaga @ Nov 07 2018 10:56PM
[2018-11-08] MEDS: Acetaminophen/HYDROcodone 325-5 MG Tab PO SCH ×2 (08:04→21:32)
[2018-11-08] MEDS: IBUPROFEN 200 MG PO SCH ×2 (08:33→21:32)
[2018-11-08] MEDS: PROBIOTIC PO SCH (08:34)
[2018-11-08] MEDS: Levothyroxine 100 MCG **PTOM PO SCH (08:35)
[2018-11-08] MEDS: Enoxaparin 40 MG/0.4 ML Syringe SUBCUT SCH (08:35)
[2018-11-08] MEDS: ATENOLOL 50 MG PO SCH ×2 (08:37→21:33)
[2018-11-08] MEDS: DOXYCYCLINE 100 MG PO SCH ×2 (08:38→21:33)
[2018-11-08] MEDS: Timolol Maleate 0.5% Ophth Soln 5 ML Bottle EYEBOTH SCH (08:38)
[2018-11-08] MEDS: Vitamin E (dl-alpha-tocopherol acetate) 400 Unit Cap PO SCH (08:40)
[2018-11-08] MEDS: Cholecalciferol (Vitamin D3) 25 MCG Tab PO SCH (08:40)
--- NOTE | 2018-11-08 11:40 | PCM.PN ---
- General Info Date of Service: 11/08/18 Subjective Update: No acute events overnight. No fevers. No hypoxia. Patient reports fatigue as well as a cough and persistent shortness of breath. She has not required any supplemental oxygen. No complaints of nausea. Vital signs are stable. CT scan of the chest yesterday showed very small bilateral effusions and a right upper lobe pneumonia. Also noted were interstitial changes up to either be pulmonary fibrosis or pulmonary edema. Functional Status: Reports: Pain Controlled, Tolerating Diet - Review of Systems General: Reports: Weakness. Denies: Fever Pulmonary: Reports: Shortness of Breath - Patient Data Vitals - Most Recent: Last Vital Signs Temp 36.2 C 11/08/18 11:00 Pulse 64 11/08/18 11:00 Resp 18 11/08/18 11:00 BP 124/60 11/08/18 11:00 Pulse Ox 95 11/08/18 11:00 Weight - Most Recent: 96.071 kg I&O - Last 24 Hours: Intake & Output 11/07/18 11/08/18 11/08/18 22:59 06:59 14:59 Intake Total 1608 280 Output Total 200 750 300 Balance -200 858 -20 Lab Results Last 24 Hours: Laboratory Results - last 24 hr 11/07/18 11/07/18 11/08/18 Range/Units 18:28 18:28 05:23 WBC 4.7 (4.5-11.0) K/uL RBC 3.87 (3.30-5.50) M/uL Hgb 11.0 L (12.0-15.0) g/dL Hct 33.1 L (36.0-48.0) % MCV 86 (80-98) fL MCH 28 (27-31) pg MCHC 33 (32-36) % Plt Count 385 (150-400) K/uL Neut % (Auto) 64 (36-66) % Lymph % (Auto) 20 L (24-44) % Brooke % (Auto) 11 H (2-6) % Eos % (Auto) 4 (2-4) % Baso % (Auto) 1 (0-1) % PT 11.4 (9.5-12.0) sec INR 1.06 (0.80-1.20) APTT 29.0 (27.0-36.0) sec Sodium (140-148) mmol/L Potassium (3.6-5.2) mmol/L Chloride (100-108) mmol/L Carbon Dioxide (21-32) mmol/L Anion Gap (5.0-14.0) mmol/L BUN (7-18) mg/dL Creatinine (0.6-1.0) mg/dL Est Cr Clr Drug Dosing Estimated GFR (MDRD) (>60) Glucose (74-106) mg/dL Calcium (8.5-10.1) mg/dL Total Bilirubin (0.2-1.0) mg/dL AST (15-37) U/L ALT (12-78) U/L Alkaline Phosphatase (46-116) U/L Creatine Kinase 35 (26-192) U/L C-Reactive Protein 8.29 H (0.0-0.3) mg/dL Total Protein (6.4-8.2) g/dL Albumin (3.4-5.0) g/dL Globulin (2.3-3.5) g/dL Albumin/Globulin Ratio (1.2-2.2) 11/08/18 Range/Units 05:23 WBC (4.5-11.0) K/uL RBC (3.30-5.50) M/uL Hgb (12.0-15.0) g/dL Hct (36.0-48.0) % MCV (80-98) fL MCH (27-31) pg MCHC (32-36) % Plt Count (150-400) K/uL Neut % (Auto) (36-66) % Lymph % (Auto) (24-44) % Brooke % (Auto) (2-6) % Eos % (Auto) (2-4) % Baso % (Auto) (0-1) % PT (9.5-12.0) sec INR (0.80-1.20) APTT (27.0-36.0) sec Sodium 135 L (140-148) mmol/L Potassium 3.4 L (3.6-5.2) mmol/L Chloride 99 L (100-108) mmol/L Carbon Dioxide 30 (21-32) mmol/L Anion Gap 9.4 (5.0-14.0) mmol/L BUN 7 (7-18) mg/dL Creatinine 0.8 (0.6-1.0) mg/dL Est Cr Clr Drug Dosing TNP Estimated GFR (MDRD) > 60 (>60) Glucose 101 (74-106) mg/dL Calcium 8.7 (8.5-10.1) mg/dL Total Bilirubin 0.6 (0.2-1.0) mg/dL AST 21 (15-37) U/L ALT 32 (12-78) U/L Alkaline Phosphatase 109 D (46-116) U/L Creatine Kinase (26-192) U/L C-Reactive Protein (0.0-0.3) mg/dL Total Protein 5.7 L (6.4-8.2) g/dL Albumin 2.3 L (3.4-5.0) g/dL Globulin 3.4 (2.3-3.5) g/dL Albumin/Globulin Ratio 0.7 L (1.2-2.2) Med Orders - Current: Current Medications Hydrocodone Bitart/Acetaminophen ([place] 325-5 Mg) 1 tab PO BID [facility] Last Admin: 11/08/18 08:04 Dose: 1 tab Atenolol (Tenormin) 50 mg PO BID [facility] Last Admin: 11/08/18 08:37 Dose: 50 mg Cholecalciferol (Vitamin D3) 125 mcg PO DAILY [facility] Last Admin: 11/08/18 08:40 Dose: 125 mcg Doxycycline Hyclate (Vibramycin) 100 mg PO BID [facility] Last Admin: 11/08/18 08:38 Dose: 100 mg Enoxaparin Sodium (Lovenox) 40 mg SUBCUT DAILY [facility] Last Admin: 11/08/18 08:35 Dose: 40 mg Ceftriaxone Sodium 1 gm/ (Sodium Chloride) 50 mls @ 100 mls/hr IV Q24H [facility] Ibuprofen (Motrin) 200 mg PO BID [facility] Last Admin: 11/08/18 08:33 Dose: 200 mg Lactobacillus Rhamnosus (Culturelle) 1 cap PO DAILY [facility] Last Admin: 11/08/18 08:34 Dose: 1 cap Levothyroxine Sodium (Synthroid) 100 mcg PO DAILY@0730 [facility] Last Admin: 11/08/18 08:35 Dose: 100 mcg Ondansetron HCl (Zofran) 4 mg IV Q4H PRN PRN Reason: Nausea/Vomiting Potassium Chloride (Klor-Con M20) 40 meq PO ONETIME ONE Stop: 11/08/18 11:39 Sodium Chloride (Saline Flush) 10 ml FLUSH ASDIRECTED PRN PRN Reason: Keep Vein Open Last Admin: 11/07/18 20:43 Dose: 10 ml Timolol Maleate (Timoptic 0.5% Ophth Soln) 0 ml EYEBOTH DAILY [facility] Last Admin: 11/08/18 08:38 Dose: Not Given Vitamin E (Vitamin E) 800 units PO DAILY [facility] Last Admin: 11/08/18 08:40 Dose: 800 units Discontinued Medications Atenolol (Tenormin) 50 mg PO BID [facility] Last Admin: 11/07/18 20:40 Dose: 50 mg Doxycycline Hyclate (Vibramycin) 100 mg PO BID [facility] Last Admin: 11/07/18 20:41 Dose: 100 mg Lactated Ringer's (Ringers, Lactated) 1,000 mls @ 125 mls/hr IV ASDIRECTED [facility] Last Admin: 11/08/18 06:36 Dose: 125 mls/hr Lactated Ringer's (Ringers, Lactated) 1,000 mls @ 500 mls/hr IV .BOLUS [facility] Sodium Chloride (Normal Saline) 100 mls @ 0 mls/hr IV ASDIRECTED [facility] Last Admin: 11/07/18 20:43 Dose: 4 mls/hr Iopamidol (Isovue-370 (76%)) 100 ml IV . DIRECTED [facility] Last Admin: 11/07/18 20:43 Dose: 100 ml Ibuprofen 200 Mg (Tabs Own Med) 0 mg PO BID [facility] Last Admin: 11/07/18 20:39 Dose: 200 mg Sodium Chloride (Saline Flush) 10 ml FLUSH ONETIME ONE Stop: 11/07/18 18:21 Last Admin: 11/07/18 20:39 Dose: 10 ml - Exam Quality Assessment: No: Supplemental Oxygen General: Alert, Oriented, Cooperative, No Acute Distress Lungs: Normal Respiratory Effort, Crackles (few right upper lung ) Cardiovascular: Regular Rate, Regular Rhythm GI/Abdominal Exam: Soft, No Distention Extremities: No Pedal Edema Psy/Mental Status: Alert, Normal Affect - Problem List Review Problem List Initiated/Reviewed/Updated: Yes - My Orders Last 24 Hours: My Active Orders 11/08/18 11:38 Potassium Chloride [Klor-Con M20] 40 meq PO ONETIME ONE 11/08/18 11:45 cefTRIAXone [Rocephin] 1 gm Sodium Chloride 0.9% [Normal Saline] 50 ml IV Q24H 11/08/18 12:30 Convert IV to Saline Lock [OM.PC] Routine 11/09/18 05:00 BASIC METABOLIC PANEL,BMP [CHEM] Timed CBC W/O DIFF,HEMOGRAM [HEME] Timed (1) - Plan Plan:: ASSESSMENT AND PLAN Right upper lobe pneumonia - CT scan did reveal a right upper lobe pneumonia. No fevers and not currently hypoxic. There was no evidence for pulmonary embolism. Also noted on the CT was early pulmonary fibrosis versus mild pulmonary edema. Exam consistent with right upper lobe pneumonia. Since the pneumonia developed while the patient was on doxycycline and going to add a second antibiotic. 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 Fevers and myalgias have resolved. - Continue antibiotics doxycycline 100 mg by mouth twice a day, total 21 days Hypothyroidism - Continue current medications MAINTENANCE ISSUES -DVT prophylaxis; Lovenox 40 mg subcutaneous daily -GI prophylaxis; not indicated at this time -Cash catheter; not indicated at this time -Nutrition; regular diet Admission justification - patient does not meet inpatient criteria at this time is admitted under observation until further evaluation can determine the etiology of the bilateral pulmonary embolism DISPOSITION - anticipate discharge to home after the hospital stay. PRIMARY CARE PROVIDER - Dr. Linda Christie M.D.
[2018-11-08] MEDS ORDERED: Potassium Chloride 20 MEQ Tab.ER PO ONE (12:00)
[2018-11-08] MEDS: cefTRIAXone 1 GM in Sodium Chloride 0.9% 50 ML IV SCH (12:21)
[2018-11-08] MEDS: Albuterol 0.083% 2.5 MG/3 ML Neb Soln NEB SCH ×2 (15:48→21:35)
[2018-11-08] MEDS: Acetaminophen/HYDROcodone 325-5 MG Tab PO PRN (17:57)
[2018-11-09] MEDS: Albuterol 0.083% 2.5 MG/3 ML Neb Soln NEB SCH ×4 (07:41→20:52)
[2018-11-09] MEDS: Levothyroxine 100 MCG **PTOM PO SCH (08:01)
[2018-11-09] MEDS: Acetaminophen/HYDROcodone 325-5 MG Tab PO SCH ×2 (08:04→20:20)
[2018-11-09] MEDS: IBUPROFEN 200 MG PO SCH ×2 (08:05→20:15)
[2018-11-09] MEDS: Vitamin E (dl-alpha-tocopherol acetate) 400 Unit Cap PO SCH (09:44)
[2018-11-09] MEDS: ATENOLOL 50 MG PO SCH ×2 (09:44→20:16)
[2018-11-09] MEDS: DOXYCYCLINE 100 MG PO SCH ×2 (09:44→20:17)
[2018-11-09] MEDS: Cholecalciferol (Vitamin D3) 25 MCG Tab PO SCH (09:45)
[2018-11-09] MEDS: Timolol Maleate 0.5% Ophth Soln 5 ML Bottle EYEBOTH SCH (09:45)
[2018-11-09] MEDS: Enoxaparin 40 MG/0.4 ML Syringe SUBCUT SCH (09:46)
[2018-11-09] MEDS: PROBIOTIC PO SCH (09:47)
[2018-11-09] MEDS ORDERED: Potassium Chloride 20 MEQ Tab.ER PO ONE (10:00)
--- NOTE | 2018-11-09 12:09 | PCM.PN ---
- General Info Date of Service: 11/09/18 Subjective Update: No acute events overnight. Vital signs have been stable. No fevers. Patient reports ongoing diffuse back pain as well as feeling weak, fatigued and still short of breath. She does think she feels better today than she did yesterday. She has not required supplemental oxygen. She did get weak when she was ambulating yesterday admitted to the bathroom and back without trouble today. The patient and family thinks that she might benefit from subacute rehabilitation before going home. Functional Status: Reports: Pain Controlled, Tolerating Diet - Review of Systems General: Reports: Weakness. Denies: Fever Pulmonary: Reports: Shortness of Breath - Patient Data Vitals - Most Recent: Last Vital Signs Temp 36.1 C 11/09/18 11:04 Pulse 68 11/09/18 11:04 Resp 16 11/09/18 11:04 BP 103/66 11/09/18 11:04 Pulse Ox 95 11/09/18 11:04 Weight - Most Recent: 96.071 kg I&O - Last 24 Hours: Intake & Output 11/08/18 11/09/18 11/09/18 22:59 06:59 14:59 Intake Total 360 Output Total 350 900 Balance 10 -900 Lab Results Last 24 Hours: Laboratory Results - last 24 hr 11/09/18 11/09/18 Range/Units 05:35 05:35 WBC 4.4 L (4.5-11.0) K/uL RBC 3.67 (3.30-5.50) M/uL Hgb 10.4 L (12.0-15.0) g/dL Hct 31.5 L (36.0-48.0) % MCV 86 (80-98) fL MCH 28 (27-31) pg MCHC 33 (32-36) % Plt Count 368 (150-400) K/uL Sodium 134 L (140-148) mmol/L Potassium 3.4 L (3.6-5.2) mmol/L Chloride 99 L (100-108) mmol/L Carbon Dioxide 30 (21-32) mmol/L Anion Gap 8.4 (5.0-14.0) mmol/L BUN 6 L (7-18) mg/dL Creatinine 0.7 (0.6-1.0) mg/dL Est Cr Clr Drug Dosing 62.19 mL/min Estimated GFR (MDRD) > 60 (>60) Glucose 132 H (74-106) mg/dL Calcium 8.8 (8.5-10.1) mg/dL Med Orders - Current: Current Medications Hydrocodone Bitart/Acetaminophen ([place] 325-5 Mg) 1 tab PO BID [facility] Last Admin: 11/09/18 08:04 Dose: 1 tab Hydrocodone Bitart/Acetaminophen ([place] 325-5 Mg) 1 tab PO Q4H PRN PRN Reason: Pain (moderate 4-6) Last Admin: 11/08/18 17:57 Dose: 1 tab Albuterol (Proventil Neb Soln) 2.5 mg NEB QIDRT [facility] Last Admin: 11/09/18 11:20 Dose: 2.5 mg Atenolol (Tenormin) 50 mg PO BID [facility] Last Admin: 11/09/18 09:44 Dose: 50 mg Cholecalciferol (Vitamin D3) 125 mcg PO DAILY [facility] Last Admin: 11/09/18 09:45 Dose: 125 mcg Doxycycline Hyclate (Vibramycin) 100 mg PO BID [facility] Last Admin: 11/09/18 09:44 Dose: 100 mg Enoxaparin Sodium (Lovenox) 40 mg SUBCUT DAILY [facility] Last Admin: 11/09/18 09:46 Dose: 40 mg Ceftriaxone Sodium 1 gm/ (Sodium Chloride) 50 mls @ 100 mls/hr IV Q24H [facility] Last Admin: 11/08/18 12:21 Dose: 100 mls/hr Ibuprofen (Motrin) 200 mg PO BID [facility] Last Admin: 11/09/18 08:05 Dose: 200 mg Lactobacillus Rhamnosus (Culturelle) 1 cap PO DAILY [facility] Last Admin: 11/09/18 09:47 Dose: 1 cap Levothyroxine Sodium (Synthroid) 100 mcg PO DAILY@0730 [facility] Last Admin: 11/09/18 08:01 Dose: 100 mcg Ondansetron HCl (Zofran) 4 mg IV Q4H PRN PRN Reason: Nausea/Vomiting Last Admin: 11/09/18 04:12 Dose: 4 mg Sodium Chloride (Saline Flush) 10 ml FLUSH ASDIRECTED PRN PRN Reason: Keep Vein Open Last Admin: 11/07/18 20:43 Dose: 10 ml Timolol Maleate (Timoptic 0.5% Ophth Soln) 0 ml EYEBOTH DAILY [facility] Last Admin: 11/09/18 09:45 Dose: 1 drop Vitamin E (Vitamin E) 800 units PO DAILY [facility] Last Admin: 11/09/18 09:44 Dose: 800 units Discontinued Medications Atenolol (Tenormin) 50 mg PO BID [facility] Last Admin: 11/07/18 20:40 Dose: 50 mg Doxycycline Hyclate (Vibramycin) 100 mg PO BID [facility] Last Admin: 11/07/18 20:41 Dose: 100 mg Lactated Ringer's (Ringers, Lactated) 1,000 mls @ 125 mls/hr IV ASDIRECTED [facility] Last Admin: 11/08/18 06:36 Dose: 125 mls/hr Lactated Ringer's (Ringers, Lactated) 1,000 mls @ 500 mls/hr IV .BOLUS [facility] Sodium Chloride (Normal Saline) 100 mls @ 0 mls/hr IV ASDIRECTED [facility] Last Admin: 11/07/18 20:43 Dose: 4 mls/hr Iopamidol (Isovue-370 (76%)) 100 ml IV . DIRECTED [facility] Last Admin: 11/07/18 20:43 Dose: 100 ml Ibuprofen 200 Mg (Tabs Own Med) 0 mg PO BID [facility] Last Admin: 11/07/18 20:39 Dose: 200 mg Potassium Chloride (Klor-Con M20) 40 meq PO ONETIME ONE Stop: 11/08/18 12:01 Last Admin: 11/08/18 13:32 Dose: 40 meq Potassium Chloride (Klor-Con M20) 40 meq PO ONETIME ONE Stop: 11/09/18 10:01 Last Admin: 11/09/18 09:43 Dose: 40 meq Sodium Chloride (Saline Flush) 10 ml FLUSH ONETIME ONE Stop: 11/07/18 18:21 Last Admin: 11/07/18 20:39 Dose: 10 ml - Exam Quality Assessment: No: Supplemental Oxygen General: Alert, Oriented, Cooperative, No Acute Distress Lungs: Normal Respiratory Effort, Crackles (mild right upper lung ) Cardiovascular: Regular Rate, Regular Rhythm GI/Abdominal Exam: Soft, No Distention Extremities: No Pedal Edema Psy/Mental Status: Alert, Normal Affect - Problem List Review Problem List Initiated/Reviewed/Updated: Yes - My Orders Last 24 Hours: My Active Orders 11/08/18 12:00 cefTRIAXone [Rocephin] 1 gm Sodium Chloride 0.9% [Normal Saline] 50 ml IV Q24H 11/08/18 12:30 Convert IV to Saline Lock [OM.PC] Routine 11/08/18 15:38 RT Aerosol Therapy [RC] ASDIRECTED 11/08/18 15:45 Albuterol [Proventil Neb Soln] 2.5 mg NEB QIDRT 11/08/18 17:42 Acetaminophen/HYDROcodone [[place] 325-5 MG] 1 tab PO Q4H PRN 11/10/18 05:00 BASIC METABOLIC PANEL,BMP [CHEM] Timed CBC W/O DIFF,HEMOGRAM [HEME] Timed (1) 11/10/18 07:00 PT Evaluation and Treatment [CONS] Routine - Plan Plan:: ASSESSMENT AND PLAN Right upper lobe pneumonia - CT scan did reveal a right upper lobe pneumonia. No fevers and not currently hypoxic. Still short of breath no impressive objective findings. 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 Fevers and myalgias have resolved. - Continue antibiotics doxycycline 100 mg by mouth twice a day, total 21 days Hypothyroidism - Continue current medications MAINTENANCE ISSUES -DVT prophylaxis; Lovenox 40 mg subcutaneous daily -GI prophylaxis; not indicated at this time -Cash catheter; not indicated at this time -Nutrition; regular diet Admission justification - patient will remain observation with anticipated discharge tomorrow DISPOSITION - anticipate discharge to home versus possibly subacute rehabilitation after the hospital stay. Plan will be decided after physical therapy tomorrow morning PRIMARY CARE PROVIDER - Dr. Linda Christie M.D.
[2018-11-09] MEDS: cefTRIAXone 1 GM in Sodium Chloride 0.9% 50 ML IV SCH (13:26)
[2018-11-09] MEDS: Magnesium Hydroxide 400 MG/5 ML Susp 30 ML Cup PO PRN (13:59)
[2018-11-09] MEDS: Docusate Sodium 100 MG Cap PO PRN (13:59)
[2018-11-09] MEDS: Acetaminophen/HYDROcodone 325-5 MG Tab PO PRN (17:10)
[2018-11-10] MEDS: Acetaminophen/HYDROcodone 325-5 MG Tab PO PRN ×3 (01:18→14:31)
[2018-11-10] MEDS: Albuterol 0.083% 2.5 MG/3 ML Neb Soln NEB SCH ×2 (07:24→11:11)
[2018-11-10] MEDS: Levothyroxine 100 MCG **PTOM PO SCH (07:44)
[2018-11-10] MEDS: PROBIOTIC PO SCH (08:16)
[2018-11-10] MEDS: ATENOLOL 50 MG PO SCH (08:16)
[2018-11-10] MEDS: Enoxaparin 40 MG/0.4 ML Syringe SUBCUT SCH (08:17)
[2018-11-10] MEDS: IBUPROFEN 200 MG PO SCH (08:17)
[2018-11-10] MEDS: Cholecalciferol (Vitamin D3) 25 MCG Tab PO SCH (08:18)
[2018-11-10] MEDS: Vitamin E (dl-alpha-tocopherol acetate) 400 Unit Cap PO SCH (08:18)
[2018-11-10] MEDS: Acetaminophen/HYDROcodone 325-5 MG Tab PO SCH (08:18)
[2018-11-10 08:31] VITALS: BP 139/66; PULSE 65
[2018-11-10] MEDS: DOXYCYCLINE 100 MG PO SCH (08:35)
[2018-11-10] MEDS: Magnesium Hydroxide 400 MG/5 ML Susp 30 ML Cup PO PRN (11:05)
[2018-11-10] MEDS: Docusate Sodium 100 MG Cap PO PRN (11:06)
--- NOTE | 2018-11-10 12:43 | PCM.DCSUM1 ---
Discharge Summary - Hospital Course Brief History: 78-year-old female with recent diagnosis of both anaplasmosis and Lyme disease currently on doxycycline who presented to the clinic with weakness, shortness of breath and muscle aches area she was directly admitted to the hospital for expedited workup of shortness of breath. 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 PT Reason for Consult: Strengthening Special Instructions: subacute rehab? This query below is only for informational purposes and is not editable. Admission Diagnosis/Problem: Weakness Hospital Course: Kallie presented initially to the clinic with shortness of breath, diffuse myalgias and weakness. Laboratory studies in the clinic were unremarkable. Chest x-ray in the clinic showed very small bilateral pleural effusions. With her shortness of breath and weakness she was not thought to be safe for outpatient management and was sent to the hospital for direct admission and expedited workup. At the time of presentation she was not hypoxic and was not febrile. A CT scan of the chest was performed and did not show evidence for pulmonary embolism. It did show very small bilateral effusions as well as a right upper lobe pneumonia. Also noted were some interstitial changes that may have been mild pulmonary edema or early pulmonary fibrosis. The morning after admission she has persistent symptoms. I did initiate antibiotics to cover pneumonia in addition to her doxycycline because the pneumonia seems to be developing while she is on the doxycycline. She remained afebrile throughout the course of her hospital stay. She did not require any supplemental oxygen. Symptomatically she is feeling a little better each day with the addition of the ceftriaxone to cover additional pneumonia organisms. Her vital signs have all remained stable. Symptomatically she continues to have some myalgias with neck and upper back affected most prominently. She has significant muscle spasm in this area and I suspect a large part of her pain is myofascial at this time. She has not had any complications during the hospital stay and repeat laboratory testing was unremarkable similar to levels obtained in the clinic. Kidney function has been stable. White blood cell count has remained normal. I suspect that her weakness is related to different infections that occurred very close together. She is interested in subacute rehabilitation and I think she would benefit from subacute rehabilitation. She will need additional antibiotic coverage for her Lyme disease and anaplasmosis with treatment progressing through November 20. She will need additional antibiotic coverage for the pneumonia which will consist of cefdinir for 5 more days after hospital discharge. Referrals will be placed for physical and occupational therapy. She' ll be discharged to the [facility] for [facility] rehabilitation with the goal of going home in the near future. - Patient Instructions Diet: Regular Diet as Tolerated Activity: As Tolerated Showering/Bathing: May Shower Notify Provider of: Fever, Increased Pain, Nausea and/or Vomiting Other/Special Instructions: 1. You were in the hospital for management of a right upper lobe pneumonia as well as ongoing treatment for both Lyme disease and anaplasmosis. Your condition has been improving with antibiotic therapy. I do recommend ongoing antibiotic therapy for both the pneumonia and the tickborne infections. You should take doxycycline 100 mg twice daily with food with your last dose being on the morning of November 20. You should also take cefdinir (Omnicef) 300 mg twice daily for 5 days with your next dose being due tomorrow morning around 9 AM. 2. Referral to physical and occupational therapy for strengthening of the setting of generalized weakness. 3. Follow up with your primary care as needed after the rehabilitation stay. 4. Seek medical attention if you have fever greater than 101, severe shortness of breath or if you develop persistent vomiting or severe diarrhea. - Discharge Plan *PRESCRIPTION DRUG MONITORING PROGRAM REVIEWED*: Not Applicable *COPY OF PRESCRIPTION DRUG MONITORING REPORT IN PATIENT ALCIDES: Not Applicable Prescriptions/Med Rec: Acetaminophen/HYDROcodone [[place] 325-5 MG] 1 tab PO Q4H PRN #60 tablet PRN Reason: Pain (Moderate 4-6) Cefdinir 300 mg PO BID #10 capsule Doxycycline Hyclate 100 mg PO BID #38 capsule Trolamine Salicylate/Aloe Vera [Aspercreme 10%] 1 gm TOP QID #1 tube Home Medications: Home Meds Atenolol [Tenormin] 50 mg PO BID 03/13/13 [History] Cholecalciferol (Vitamin D3) [Vitamin D3] 5,000 unit PO DAILY 03/13/13 [History] Levothyroxine [Synthroid] 100 mcg PO DAILY 03/13/13 [History] Timolol [Betimol 0.5% Ophth Soln] 1 drop EYEBOTH DAILY 12/15/16 [History] L.acidoph,Paracasei, B.lactis [Probiotic] 1 tab PO DAILY 09/29/18 [History] Vitamin E 1,000 unit PO DAILY 09/29/18 [History] Acetaminophen/HYDROcodone [[place] 325-5 MG] 1 tab PO BID 11/07/18 [History] Ibuprofen 200 mg PO BID 11/07/18 [History] Acetaminophen/HYDROcodone [[place] 325-5 MG] 1 tab PO Q4H PRN #60 tablet 11/10/18 [Rx] Cefdinir 300 mg PO BID #10 capsule 11/10/18 [Rx] Doxycycline Hyclate 100 mg PO BID #38 capsule 11/10/18 [Rx] Trolamine Salicylate/Aloe Vera [Aspercreme 10%] 1 gm TOP QID #1 tube 11/10/18 [ Rx] Oxygen Therapy Mode: Room Air - Discharge Summary/Plan Comment DC Time >30 min.: Yes (40 - new [facility] discharge ) - Patient Data Vitals - Most Recent: Last Vital Signs Temp 36.3 C 11/10/18 08:28 Pulse 65 11/10/18 11:20 Resp 16 11/10/18 08:28 BP 139/66 11/10/18 08:28 Pulse Ox 96 11/10/18 08:28 Weight - Most Recent: 96.071 kg I&O - Last 24 hours: Intake & Output 11/09/18 11/10/18 11/10/18 22:59 06:59 14:59 Intake Total 400 Output Total 950 100 Balance -950 300 Lab Results - Last 24 hrs: Laboratory Results - last 24 hr 11/10/18 11/10/18 Range/Units 05:58 05:58 WBC 4.9 (4.5-11.0) K/uL RBC 3.97 (3.30-5.50) M/uL Hgb 11.2 L (12.0-15.0) g/dL Hct 34.5 L (36.0-48.0) % MCV 87 (80-98) fL MCH 28 (27-31) pg MCHC 33 (32-36) % Plt Count 404 H (150-400) K/uL Sodium 136 L (140-148) mmol/L Potassium 4.3 (3.6-5.2) mmol/L Chloride 100 (100-108) mmol/L Carbon Dioxide 33 H (21-32) mmol/L Anion Gap 7.3 (5.0-14.0) mmol/L BUN 6 L (7-18) mg/dL Creatinine 0.8 (0.6-1.0) mg/dL Est Cr Clr Drug Dosing 54.42 mL/min Estimated GFR (MDRD) > 60 (>60) Glucose 102 (74-106) mg/dL Calcium 8.9 (8.5-10.1) mg/dL Med Orders - Current: Current Medications Hydrocodone Bitart/Acetaminophen ([place] 325-5 Mg) 1 tab PO BID [facility] Last Admin: 11/10/18 08:18 Dose: Not Given Hydrocodone Bitart/Acetaminophen ([place] 325-5 Mg) 1 tab PO Q4H PRN PRN Reason: Pain (moderate 4-6) Last Admin: 11/10/18 07:21 Dose: 1 tab Albuterol (Proventil Neb Soln) 2.5 mg NEB QIDRT [facility] Last Admin: 11/10/18 11:11 Dose: 2.5 mg Atenolol (Tenormin) 50 mg PO BID [facility] Last Admin: 11/10/18 08:16 Dose: 50 mg Cholecalciferol (Vitamin D3) 125 mcg PO DAILY [facility] Last Admin: 11/10/18 08:18 Dose: 125 mcg Docusate Sodium (Colace) 100 mg PO BID PRN PRN Reason: Constipation Last Admin: 11/10/18 11:06 Dose: 100 mg Doxycycline Hyclate (Vibramycin) 100 mg PO BID [facility] Last Admin: 11/10/18 08:35 Dose: 100 mg Enoxaparin Sodium (Lovenox) 40 mg SUBCUT DAILY [facility] Last Admin: 11/10/18 08:17 Dose: 40 mg Ceftriaxone Sodium 1 gm/ (Sodium Chloride) 50 mls @ 100 mls/hr IV Q24H [facility] Last Admin: 11/09/18 13:26 Dose: 100 mls/hr Ibuprofen (Motrin) 200 mg PO BID [facility] Last Admin: 11/10/18 08:17 Dose: 200 mg Lactobacillus Rhamnosus (Culturelle) 1 cap PO DAILY [facility] Last Admin: 11/10/18 08:16 Dose: 1 cap Levothyroxine Sodium (Synthroid) 100 mcg PO DAILY@0730 [facility] Last Admin: 11/10/18 07:44 Dose: 100 mcg Magnesium Hydroxide (Milk Of Magnesia) 30 ml PO BID PRN PRN Reason: Constipation Last Admin: 11/10/18 11:05 Dose: 30 ml Ondansetron HCl (Zofran) 4 mg IV Q4H PRN PRN Reason: Nausea/Vomiting Last Admin: 11/09/18 04:12 Dose: 4 mg Sodium Chloride (Saline Flush) 10 ml FLUSH ASDIRECTED PRN PRN Reason: Keep Vein Open Last Admin: 11/07/18 20:43 Dose: 10 ml Timolol Maleate (Timoptic 0.5% Ophth Soln) 0 ml EYEBOTH DAILY [facility] Last Admin: 11/09/18 09:45 Dose: 1 drop Vitamin E (Vitamin E) 800 units PO DAILY [facility] Last Admin: 11/10/18 08:18 Dose: 800 units Discontinued Medications Atenolol (Tenormin) 50 mg PO BID [facility] Last Admin: 11/07/18 20:40 Dose: 50 mg Doxycycline Hyclate (Vibramycin) 100 mg PO BID [facility] Last Admin: 11/07/18 20:41 Dose: 100 mg Lactated Ringer's (Ringers, Lactated) 1,000 mls @ 125 mls/hr IV ASDIRECTED [facility] Last Admin: 11/08/18 06:36 Dose: 125 mls/hr Lactated Ringer's (Ringers, Lactated) 1,000 mls @ 500 mls/hr IV .BOLUS [facility] Sodium Chloride (Normal Saline) 100 mls @ 0 mls/hr IV ASDIRECTED [facility] Last Admin: 11/07/18 20:43 Dose: 4 mls/hr Iopamidol (Isovue-370 (76%)) 100 ml IV . DIRECTED [facility] Last Admin: 11/07/18 20:43 Dose: 100 ml Ibuprofen 200 Mg (Tabs Own Med) 0 mg PO BID [facility] Last Admin: 11/07/18 20:39 Dose: 200 mg Potassium Chloride (Klor-Con M20) 40 meq PO ONETIME ONE Stop: 11/08/18 12:01 Last Admin: 11/08/18 13:32 Dose: 40 meq Potassium Chloride (Klor-Con M20) 40 meq PO ONETIME ONE Stop: 11/09/18 10:01 Last Admin: 11/09/18 09:43 Dose: 40 meq Sodium Chloride (Saline Flush) 10 ml FLUSH ONETIME ONE Stop: 11/07/18 18:21 Last Admin: 11/07/18 20:39 Dose: 10 ml - Exam Quality Assessment: Denies: Supplemental Oxygen General: Reports: Alert, Oriented, Cooperative, No Acute Distress Lungs: Reports: Normal Respiratory Effort GI/Abdominal Exam: Soft, No Distention Extremities: Pedal Edema (trace bilateral ankle edema ) Psy/Mental Status: Reports: Alert, Normal Affect
[2018-11-10] MEDS: cefTRIAXone 1 GM in Sodium Chloride 0.9% 50 ML IV SCH (12:47)
[2018-11-10] MEDS ORDERED: Trolamine Salicylate/Aloe Vera 10% Crm 85 GM Tube TOP PRN (14:04)
== END 2018-11-10 14:40 ==
LOC: JP.MS 16:27
PROVIDERS: ADMIT Family Medicine; ATTEND Internal Medicine
DX: J18.1 Lobar pneumonia, unspecified organism (principal); R53.1 Weakness; A77.49 Other ehrlichiosis; A69.20 Lyme disease, unspecified; E78.00 Pure hypercholesterolemia, unspecified; E03.9 Hypothyroidism, unspecified; Z88.2 Allergy status to sulfonamides; Z88.8 Allergy status to other drugs, medicaments and biological substances; Z79.899 Other long term (current) drug therapy
CPT/HCPCS: 36415; 71275; 80048; 80053; 82550; 85025; 85027; 85610; 85730; 86140; 94640; 96361; 96365; 96366; 96372; 96375; 97162; A9270; G0378; J0696; J1650; J2405; J7030; J7050; J7120; Q9967

== ENCOUNTER 2023-04-24 10:06 | Day surgery (SDC) | payer MEDICARE ==
[2023-04-24] MEDS ORDERED: Propofol 200 MG/20 ML SDV ONE (10:36)
[2023-04-24] MEDS ORDERED: fentaNYL 50 MCG/ML SDV ONE (10:36)
[2023-04-24] MEDS ORDERED: Lactated Ringers 1,000 ML IV SCH (10:45)
[2023-04-24] MEDS ORDERED: Iopamidol 612 MG/ML 50 ML SDV PO ONE (13:12)
[2023-04-24] MEDS ORDERED: Iopamidol 612 MG/ML 100 ML Bottle IV SCH (13:15)
[2023-04-24] MEDS ORDERED: Sodium Chloride 0.9% 80 ML IV SCH (13:15)
[2023-04-24 16:07] VITALS: BP 149/84; PULSE 71
== END 2023-04-24 16:38 | disposition home or self-care (01) ==
LOC: JP.SDS 10:06
PROVIDERS: ATTEND Student in an Organized Health Care Education/Training Program
DX: K29.50 Unspecified chronic gastritis without bleeding (principal); K31.7 Polyp of stomach and duodenum; K21.9 Gastro-esophageal reflux disease without esophagitis; I25.10 Atherosclerotic heart disease of native coronary artery without angina pectoris; Z95.1 Presence of aortocoronary bypass graft
CPT/HCPCS: 43239; 74177; 88305; J2704; J3010; J3490; J7120; Q9967

== ENCOUNTER 2023-12-06 14:51 | Emergency (ER) | payer MEDICARE ==
[2023-12-06] MEDS ORDERED: Sodium Chloride 0.9% 10 ML Syringe FLUSH PRN (16:33)
[2023-12-06] MEDS ORDERED: Naloxone 0.4 MG/ML SDV IVPUSH PRN (16:33)
[2023-12-06] MEDS: HYDROmorphone 0.5 MG/0.5 ML Syringe IVPUSH ONE (16:55)
[2023-12-06] MEDS: ceFAZolin 2 GM in Sodium Chloride 0.9% 50 ML IV ONE (17:50)
[2023-12-06] MEDS: Lidocaine 1% 5 ML VIAL INJECT ONE (18:08)
[2023-12-06 19:05] VITALS: BP 142/74; PULSE 59
== END 2023-12-06 19:11 | disposition other institution (70) ==
LOC: JP.ED 14:51
DX: S52.032A Displaced fracture of olecranon process with intraarticular extension of left ulna, initial encounter for closed fracture (principal); E78.00 Pure hypercholesterolemia, unspecified; K21.9 Gastro-esophageal reflux disease without esophagitis; E03.9 Hypothyroidism, unspecified; E66.9 Obesity, unspecified; Z79.899 Other long term (current) drug therapy; Z88.8 Allergy status to other drugs, medicaments and biological substances; Z88.2 Allergy status to sulfonamides; Z91.011 Allergy to milk products; W01.0XXA Fall on same level from slipping, tripping and stumbling without subsequent striking against object, initial encounter; Y93.H2 Activity, gardening and landscaping; Y92.007 Garden or yard of unspecified non-institutional (private) residence as the place of occurrence of the external cause
CPT/HCPCS: 12001; 12002; 29105; 73080; 96365; 96375; 99284; J0690; J1170; J3490

== ENCOUNTER 2023-12-15 04:41 | Emergency (ER) | payer MEDICARE ==
[2023-12-15 04:55] VITALS: BP 149/86; PULSE 87
[2023-12-15] MEDS: Sodium Phosphate,Monobasic/Sodium Phosphate,Dibasic Enema 133 ML Bottle RECTAL ONE (06:57)
[2023-12-15] MEDS: Magnesium Citrate Solution 296 ML Bottle PO ONE (07:04)
== END 2023-12-15 07:15 | disposition home or self-care (01) ==
LOC: JP.ED 04:41
DX: K59.03 Drug induced constipation (principal); T40.2X5A Adverse effect of other opioids, initial encounter; E78.00 Pure hypercholesterolemia, unspecified; M19.90 Unspecified osteoarthritis, unspecified site; E03.9 Hypothyroidism, unspecified; E66.9 Obesity, unspecified; Z79.82 Long term (current) use of aspirin; Z79.899 Other long term (current) drug therapy; Z88.2 Allergy status to sulfonamides; Z88.8 Allergy status to other drugs, medicaments and biological substances; Z91.011 Allergy to milk products
CPT/HCPCS: 99283; A9270

== ENCOUNTER 2024-10-07 17:01 | Emergency (ER) | payer MEDICARE ==
[2024-10-07 18:31] VITALS: BP 150/80; PULSE 74
[2024-10-07] MEDS: Diphtheria,Pertussis(Acell),Tetanus Vaccine 0.5 ML Syringe IM ONE (19:02)
[2024-10-07] MEDS: Lidocaine 1% with EPINEPHrine 1:100,000 20 ML MDV INJECT ONE (19:03)
[2024-10-07] MEDS: Bacitracin Oint 1 GM U/D Packet TOP ONE (21:20)
== END 2024-10-07 21:21 | disposition home or self-care (01) ==
LOC: JP.ED 17:01
DX: S01.81XA Laceration without foreign body of other part of head, initial encounter (principal); E78.00 Pure hypercholesterolemia, unspecified; E03.9 Hypothyroidism, unspecified; Z90.710 Acquired absence of both cervix and uterus; Z88.2 Allergy status to sulfonamides; Z88.8 Allergy status to other drugs, medicaments and biological substances; Z91.011 Allergy to milk products; Z79.890 Hormone replacement therapy; Z79.82 Long term (current) use of aspirin; Z79.899 Other long term (current) drug therapy; W01.198A Fall on same level from slipping, tripping and stumbling with subsequent striking against other object, initial encounter; Z23 Encounter for immunization
CPT/HCPCS: 12011; 70450; 90471; 90715; 99283; J2004